=== PATIENT | male | born 1940 | race Caucasian/White ===

== ENCOUNTER 2017-11-26 20:36 | Inpatient (IN) | payer OTHER, MEDICAID ==
[~2017-11-26] VITALS: Ht 167.6 cm; Wt 56.7 kg
[2017-11-26 20:40] VITALS: BP_SYST 156
[2017-11-26] MEDS ORDERED: MORPHINE 4 MG/ML INJ. SYRINGE IVP ONE (21:00)
[2017-11-26] MEDS ORDERED: ONDANSETRON HCL 4 MG/2 ML VIAL IVP ONE (21:00)
[2017-11-26 21:47] LABS: BASOPHILS # (AUTO) 0.1 K/uL (0.0-0.2); BASOPHILS % (AUTO) 0.9 % (0.0-2.0); EOSINOPHILS # (AUTO) 0.1 K/uL (0.0-0.4); EOSINOPHILS % (AUTO) 1.6 % (0.0-4.0); HEMATOCRIT 37.2 % (36-48); HEMOGLOBIN 13.2 g/dL (12.0-16.0); LYMPHOCYTES # (AUTO) 1.9 K/uL (1.0-5.5); LYMPHOCYTES % (AUTO) 25.6 % (20.5-51.5); MEAN CORPUSCULAR HEMOGLOBIN 33 pg (27-31); MEAN CORPUSCULAR HGB CONC 35 % (32-36); MEAN CORPUSCULAR VOLUME 93 fL (79.0-98.0); MONOCYTES # (AUTO) 0.6 K/uL (0.0-1.0); MONOCYTES % (AUTO) 7.9 % (1.7-9.3); NEUTROPHILS # (AUTO) 4.8 K/uL (1.8-7.7); PLATELET COUNT (AUTO) 286 K/uL (130-430); RED BLOOD CELL COUNT(AUTO) 4.02 MIL/uL (4.2-6.2); WHITE BLOOD COUNT (AUTO) 7.5 K/uL (4.8-10.8)
[2017-11-26] MEDS ORDERED: NAPR-690 PO (22:15)
[2017-11-26] MEDS ORDERED: HYDR-4272 PO (22:16)
[2017-11-26] MEDS ORDERED: CHLO473M5 MM (22:17)
[2017-11-26] MEDS ORDERED: TAMS-11 PO (22:19)
[2017-11-26] MEDS ORDERED: TRAM50TA2 PO (22:20)
[2017-11-26] MEDS ORDERED: ACET325C4 PO (22:22)
[2017-11-26] MEDS ORDERED: DIPHENHYDRAMINE INJ 50 MG/ML VIAL IVP ONE (22:30)
[2017-11-26] MEDS ORDERED: METOCLOPRAMIDE HCL 10 MG/2 ML VIAL IVP ONE (22:30)
[2017-11-26] MEDS ORDERED: PANTOPRAZOLE SODIUM 40 MG/VIAL (PROTONIX) IVP ONE (22:30)
[2017-11-26] MEDS ORDERED: MORPHINE SULFATE 10 MG/ML VIAL IVP ONE (22:30)
[2017-11-26 22:32] LABS: ANION GAP 8 (5-15); CALCIUM 9.1 mg/dL (8.4-11.0); CHLORIDE 102 mmol/L (98-107); CREATININE 1.06 mg/dL (0.55-1.30); GLUCOSE 103 mg/dL (70-99); POTASSIUM 4.3 mmol/L (3.5-5.1); SODIUM SERUM 136 mmol/L (136-145); UREA NITROGEN, BLOOD 24 mg/dL (8-21)
[2017-11-26 22:38] LABS: ALANINE AMINOTRANSFERASE 32 U/L (12-78); ASPARTATE AMINOTRANSFERASE 28 U/L (10-37); LIPASE 251 U/L (73-393); TOTAL BILIRUBIN 0.2 mg/dL (0.0-1.0)
[2017-11-27 01:01] LABS: BILIRUBIN,URINE NEGATIVE (NEGATIVE); BLOOD, URINE NEGATIVE (NEGATIVE); CLARITY/URINE CLEAR (CLEAR); COLOR,URINE YELLOW (YELLOW); GLUCOSE,URINE NEGATIVE (NEGATIVE); KETONES,URINE NEGATIVE (NEGATIVE); LEUKOCYTE ESTERASE ,URINE NEGATIVE (NEGATIVE); NITRITE, URINE NEGATIVE (NEGATIVE); PH,URINE 7.5 (5.0-8.0); PROTEIN URINE NEGATIVE (NEGATIVE); UROBILINOGEN,URINE 0.2 (0.2-1.0)
[2017-11-27] MEDS ORDERED: MORPHINE 4 MG/ML INJ. SYRINGE IVP PRN (02:45)
[2017-11-27] MEDS ORDERED: ONDANSETRON HCL 4 MG/2 ML VIAL IVP PRN (02:45)
[2017-11-27 03:11] VITALS: BP_SYST 126
[2017-11-27] MEDS ORDERED: BISACODYL 10 MG/SUPPOSITORY RC ONE (03:30)
[2017-11-27] MEDS: D5/0.45 NS 1,000 ML IV SCH ×2 (04:01→16:36)
[2017-11-27 08:00] VITALS: BP_SYST 134
[2017-11-27] MEDS: PANTOPRAZOLE SODIUM 40 MG/VIAL (PROTONIX) IVP SCH (09:02)
[2017-11-27] MEDS ORDERED: GASTROGRAFIN 120 ML ONE (09:49)
[2017-11-27 11:26] VITALS: BP_SYST 133
[2017-11-27] MEDS ORDERED: traMADol HCL HCL 50 MG TABLET (ULTRAM) PO PRN (12:30)
[2017-11-27] MEDS ORDERED: TAMSULOSIN HCL 0.4 MG CAP PO ONE (12:30)
[2017-11-27] MEDS ORDERED: PHENYTOIN 100 MG CAPSULE PO ONE (12:45)
[2017-11-27] MEDS ORDERED: POLYETHYLENE GLYCOL 3350, 17 GM/ POWD.PACK PO ONE (12:45)
[2017-11-27 15:42] VITALS: BP_SYST 137
[2017-11-27] MEDS ORDERED: DEXTROSE 50%-WATER 50 ML DISP.SYRIN IVP PRN ×2 (17:00)
[2017-11-27] MEDS ORDERED: INSULIN REGULAR, HUMAN 100 UNITS/ML, 10 ML VIAL SUBCUT SCH (17:00)
[2017-11-27] MEDS ORDERED: GLUCOSE 15 GM GEL (in 37.5 GM TUBE) PO PRN ×2 (17:00)
[2017-11-27] MEDS: metFORMIN HCL 500 MG TABLET PO SCH (17:04)
[2017-11-27 20:09] VITALS: BP_SYST 122
[2017-11-27] MEDS: DONEPEZIL HCL 5 MG TABLET (ARICEPT) PO SCH (20:48)
[2017-11-27] MEDS: PHENYTOIN 100 MG CAPSULE PO SCH (20:49)
[2017-11-27] MEDS: DOCUSATE SODIUM 100 MG CAPSULE PO SCH (20:51)
[2017-11-28] VITALS: BP_SYST 154
[2017-11-28] MEDS: D5/0.45 NS 1,000 ML IV SCH (06:03)
[2017-11-28 06:50] LABS: BASOPHILS # (AUTO) 0.1 K/uL (0.0-0.2); BASOPHILS % (AUTO) 0.5 % (0.0-2.0); EOSINOPHILS # (AUTO) 0.2 K/uL (0.0-0.4); EOSINOPHILS % (AUTO) 1.9 % (0.0-4.0); HEMATOCRIT 37.3 % (36-54); HEMOGLOBIN 12.3 g/dL (14.0-18.0); LYMPHOCYTES # (AUTO) 1.5 K/uL (1.0-5.5); LYMPHOCYTES % (AUTO) 14.2 % (20.5-51.5); MEAN CORPUSCULAR HEMOGLOBIN 31 pg (27-31); MEAN CORPUSCULAR HGB CONC 33 % (32-36); MEAN CORPUSCULAR VOLUME 95 fL (79.0-98.0); MONOCYTES # (AUTO) 0.6 K/uL (0.0-1.0); NEUTROPHILS % (AUTO) 77.4 % (40.0-70.0); PLATELET COUNT (AUTO) 281 K/uL (130-430); RED BLOOD CELL COUNT(AUTO) 3.93 MIL/uL (4.2-6.2); RED CELL DISTRIBUTION WIDTH 12.6 % (9.0-15.0); WHITE BLOOD COUNT (AUTO) 10.4 K/uL (4.8-10.8)
[2017-11-28 06:52] LABS: ALANINE AMINOTRANSFERASE 31 U/L (12-78); ALBUMIN 3.6 g/dL (3.4-4.8); AMYLASE 147 U/L (0-100); ANION GAP 6 (5-15); ASPARTATE AMINOTRANSFERASE 23 U/L (10-37); CALCIUM 8.7 mg/dL (8.4-11.0); CHLORIDE 106 mmol/L (98-107); CREATININE 0.83 mg/dL (0.55-1.30); GLUCOSE 97 mg/dL (70-99); LIPASE 192 U/L (73-393); POTASSIUM 3.8 mmol/L (3.5-5.1); SODIUM SERUM 140 mmol/L (136-145); TOTAL BILIRUBIN 0.2 mg/dL (0.0-1.0); UREA NITROGEN, BLOOD 12 mg/dL (8-21)
[2017-11-28 08:00] VITALS: BP_SYST 126
[2017-11-28] MEDS: metFORMIN HCL 500 MG TABLET PO SCH ×2 (08:00→17:16)
[2017-11-28] MEDS: TAMSULOSIN HCL 0.4 MG CAP PO SCH (08:58)
[2017-11-28] MEDS: MULTIVITS,CA,MINERALS/IRON/FA 1 TABLET PO SCH (08:58)
[2017-11-28] MEDS: PHENYTOIN 100 MG CAPSULE PO SCH ×2 (08:59→21:31)
[2017-11-28] MEDS ORDERED: POLYETHYLENE GLYCOL 3350, 17 GM/ POWD.PACK PO SCH (09:00)
[2017-11-28] MEDS: DOCUSATE SODIUM 100 MG CAPSULE PO SCH ×2 (09:00→21:00)
[2017-11-28] MEDS: PANTOPRAZOLE SODIUM 40 MG/VIAL (PROTONIX) IVP SCH (09:01)
[2017-11-28] MEDS ORDERED: MAG-AL HYDROX/SIMETH 30 ML UDC PO PRN (10:45)
[2017-11-28 12:30] VITALS: BP_SYST 133
[2017-11-28 16:30] VITALS: BP_SYST 120
[2017-11-28 20:00] VITALS: BP_SYST 139
[2017-11-28] MEDS: DONEPEZIL HCL 5 MG TABLET (ARICEPT) PO SCH (21:31)
[2017-11-29 00:26] VITALS: BP_SYST 144
[2017-11-29] MEDS: INSULIN REGULAR, HUMAN 100 UNITS/ML, 10 ML VIAL (novoLIN R) SUBCUT PRN (06:38)
[2017-11-29 06:48] LABS: BASOPHILS % (AUTO) 0.7 % (0.0-2.0); EOSINOPHILS # (AUTO) 0.1 K/uL (0.0-0.4); EOSINOPHILS % (AUTO) 2.3 % (0.0-4.0); HEMATOCRIT 36.8 % (36-54); HEMOGLOBIN 12.7 g/dL (14.0-18.0); LYMPHOCYTES # (AUTO) 1.6 K/uL (1.0-5.5); LYMPHOCYTES % (AUTO) 27.4 % (20.5-51.5); MEAN CORPUSCULAR HEMOGLOBIN 33 pg (27-31); MEAN CORPUSCULAR HGB CONC 35 % (32-36); MEAN CORPUSCULAR VOLUME 95 fL (79.0-98.0); MONOCYTES # (AUTO) 0.5 K/uL (0.0-1.0); MONOCYTES % (AUTO) 8.3 % (1.7-9.3); NEUTROPHILS # (AUTO) 3.5 K/uL (1.8-7.7); NEUTROPHILS % (AUTO) 61.3 % (40.0-70.0); PLATELET COUNT (AUTO) 278 K/uL (130-430); RED BLOOD CELL COUNT(AUTO) 3.88 MIL/uL (4.2-6.2); RED CELL DISTRIBUTION WIDTH 12.6 % (9.0-15.0); WHITE BLOOD COUNT (AUTO) 5.7 K/uL (4.8-10.8)
[2017-11-29 07:12] LABS: ALANINE AMINOTRANSFERASE 104 U/L (12-78); ALBUMIN 3.7 g/dL (3.4-4.8); ANION GAP 7 (5-15); ASPARTATE AMINOTRANSFERASE 75 U/L (10-37); CALCIUM 8.8 mg/dL (8.4-11.0); CHLORIDE 104 mmol/L (98-107); CREATININE 0.87 mg/dL (0.55-1.30); GLUCOSE 90 mg/dL (70-99); LIPASE 181 U/L (73-393); POTASSIUM 3.8 mmol/L (3.5-5.1); SODIUM SERUM 138 mmol/L (136-145); TOTAL BILIRUBIN 0.3 mg/dL (0.0-1.0); UREA NITROGEN, BLOOD 10 mg/dL (8-21)
[2017-11-29 08:00] VITALS: BP_SYST 128
[2017-11-29] MEDS: metFORMIN HCL 500 MG TABLET PO SCH ×2 (08:00→17:54)
[2017-11-29] MEDS: PANTOPRAZOLE SODIUM 40 MG/VIAL (PROTONIX) IVP SCH ×2 (09:00→10:17)
[2017-11-29] MEDS: DOCUSATE SODIUM 100 MG CAPSULE PO SCH ×3 (09:00→20:57)
[2017-11-29] MEDS: TAMSULOSIN HCL 0.4 MG CAP PO SCH (10:17)
[2017-11-29] MEDS: MULTIVITS,CA,MINERALS/IRON/FA 1 TABLET PO SCH (10:18)
[2017-11-29] MEDS: PHENYTOIN 100 MG CAPSULE PO SCH ×2 (10:18→20:56)
[2017-11-29 11:18] VITALS: BP_SYST 111
[2017-11-29 15:14] VITALS: BP_SYST 108
[2017-11-29] MEDS ORDERED: GOLYTELY / COLYTE SOLUTION 4 LITERS PO SCH (18:00)
[2017-11-29] MEDS ORDERED: PHENYTOIN 100 MG CAPSULE ONE (20:44)
[2017-11-29 20:54] VITALS: BP_SYST 111
[2017-11-29] MEDS: DONEPEZIL HCL 5 MG TABLET (ARICEPT) PO SCH (20:55)
[2017-11-29] MEDS ORDERED: BISACODYL 5 MG TABLET.DR (DULCOLAX) PO ONE (21:00)
[2017-11-29] MEDS ORDERED: BISACODYL 5 MG TABLET.DR (DULCOLAX) ONE (22:19)
[2017-11-30 00:35] VITALS: BP_SYST 123
[2017-11-30] MEDS: INSULIN REGULAR, HUMAN 100 UNITS/ML, 10 ML VIAL (novoLIN R) SUBCUT PRN (06:18)
[2017-11-30 06:42] LABS: BASOPHILS # (AUTO) 0.1 K/uL (0.0-0.2); BASOPHILS % (AUTO) 0.9 % (0.0-2.0); EOSINOPHILS # (AUTO) 0.2 K/uL (0.0-0.4); HEMATOCRIT 36.3 % (36-54); HEMOGLOBIN 12.6 g/dL (14.0-18.0); LYMPHOCYTES # (AUTO) 1.4 K/uL (1.0-5.5); LYMPHOCYTES % (AUTO) 24.8 % (20.5-51.5); MEAN CORPUSCULAR HEMOGLOBIN 33 pg (27-31); MEAN CORPUSCULAR HGB CONC 35 % (32-36); MEAN CORPUSCULAR VOLUME 94 fL (79.0-98.0); MONOCYTES # (AUTO) 0.6 K/uL (0.0-1.0); MONOCYTES % (AUTO) 9.7 % (1.7-9.3); NEUTROPHILS # (AUTO) 3.5 K/uL (1.8-7.7); NEUTROPHILS % (AUTO) 61.6 % (40.0-70.0); PLATELET COUNT (AUTO) 283 K/uL (130-430); RED BLOOD CELL COUNT(AUTO) 3.85 MIL/uL (4.2-6.2); RED CELL DISTRIBUTION WIDTH 12.7 % (9.0-15.0); WHITE BLOOD COUNT (AUTO) 5.8 K/uL (4.8-10.8)
[2017-11-30 06:45] LABS: PROTHROMBIN TIME 10.6 SECS (9.5-12.5)
[2017-11-30 06:54] LABS: ANION GAP 7 (5-15); CALCIUM 9.2 mg/dL (8.4-11.0); CHLORIDE 104 mmol/L (98-107); CREATININE 0.98 mg/dL (0.55-1.30); GLUCOSE 89 mg/dL (70-99); POTASSIUM 3.9 mmol/L (3.5-5.1); SODIUM SERUM 139 mmol/L (136-145); UREA NITROGEN, BLOOD 12 mg/dL (8-21)
[2017-11-30] MEDS: TAMSULOSIN HCL 0.4 MG CAP PO SCH (08:45)
[2017-11-30] MEDS: MULTIVITS,CA,MINERALS/IRON/FA 1 TABLET PO SCH (08:45)
[2017-11-30] MEDS: metFORMIN HCL 500 MG TABLET PO SCH (08:45)
[2017-11-30] MEDS: PHENYTOIN 100 MG CAPSULE PO SCH (08:45)
[2017-11-30] MEDS: DOCUSATE SODIUM 100 MG CAPSULE PO SCH (08:51)
[2017-11-30] MEDS: PANTOPRAZOLE SODIUM 40 MG/VIAL (PROTONIX) IVP SCH (08:51)
[2017-11-30 08:57] VITALS: BP_SYST 125
[2017-11-30 12:00] VITALS: BP_SYST 128
[2017-11-30 15:34] VITALS: BP_SYST 128
[2017-11-30 16:23] VITALS: BP_SYST 129
== END 2017-11-30 17:50 | DRG 384 ==
LOC: SED 20:36 → EDSEX 20:36 → SMU 11-27 02:39
PROVIDERS: ADMIT Internal Medicine; ATTEND Family Medicine
DX: K27.9 Peptic ulcer, site unspecified, unspecified as acute or chronic, without hemorrhage or perforation (principal); K56.690 Other partial intestinal obstruction; K29.70 Gastritis, unspecified, without bleeding; K52.9 Noninfective gastroenteritis and colitis, unspecified; K59.00 Constipation, unspecified; N40.0 Benign prostatic hyperplasia without lower urinary tract symptoms; F03.90 Unspecified dementia, unspecified severity, without behavioral disturbance, psychotic disturbance, mood disturbance, and anxiety; E11.9 Type 2 diabetes mellitus without complications; G40.909 Epilepsy, unspecified, not intractable, without status epilepticus; K21.9 Gastro-esophageal reflux disease without esophagitis; M19.90 Unspecified osteoarthritis, unspecified site; Z90.49 Acquired absence of other specified parts of digestive tract; Z87.891 Personal history of nicotine dependence; Z79.899 Other long term (current) drug therapy
CPT/HCPCS: 36415; 74250-TC; 80048; 80053; 81003; 82150-TC; 82962; 83690-TC; 85025; 85610-TC; 85730-TC; 87081; 93005; 96374; 96375; 96376; 99285; C9113; J1200; J1815; J2270; J2405; J2765; Q9963

== ENCOUNTER 2019-01-02 17:50 | Emergency (ER) | payer OTHER, MEDICAID ==
[~2019-01-02] VITALS: Ht 172.7 cm; Wt 56.7 kg
[~2019-01-02 17:50] MED LIST: ACET325C6 PO; CHLO473M5 MM; HYDR-4272 PO; NAPR-690 PO; TAMS-11 PO; TRAM50TA2 PO
[2019-01-02 17:55] VITALS: BP_SYST 121
[2019-01-02 19:14] LABS: ANION GAP 8 (5-15); BASOPHILS % (AUTO) 0.4 % (0.0-2.0); CHLORIDE 102 mmol/L (98-107); CREATININE 1.18 mg/dL (0.55-1.30); EOSINOPHILS % (AUTO) 0.6 % (0.0-4.0); GLUCOSE 96 mg/dL (70-99); HEMATOCRIT 33.9 % (36-54); HEMOGLOBIN 11.6 g/dL (14.0-18.0); LYMPHOCYTES # (AUTO) 1.6 K/uL (1.0-5.5); LYMPHOCYTES % (AUTO) 19.1 % (20.5-51.5); MEAN CORPUSCULAR HEMOGLOBIN 33 pg (27-31); MEAN CORPUSCULAR HGB CONC 34 % (32-36); MEAN CORPUSCULAR VOLUME 98 fL (79.0-98.0); MONOCYTES # (AUTO) 0.7 K/uL (0.0-1.0); MONOCYTES % (AUTO) 8.2 % (1.7-9.3); NEUTROPHILS # (AUTO) 5.9 K/uL (1.8-7.7); NEUTROPHILS % (AUTO) 71.7 % (40.0-70.0); PLATELET COUNT (AUTO) 249 K/uL (130-430); POTASSIUM 4.8 mmol/L (3.5-5.1); RED BLOOD CELL COUNT(AUTO) 3.47 MIL/uL (4.2-6.2); RED CELL DISTRIBUTION WIDTH 15.5 % (9.0-15.0); SODIUM SERUM 135 mmol/L (136-145); UREA NITROGEN, BLOOD 21 mg/dL (8-21); WHITE BLOOD COUNT (AUTO) 8.2 K/uL (4.8-10.8)
[2019-01-02 19:19] LABS: ACETAMINOPHEN 16 ug/mL (1-30); ALANINE AMINOTRANSFERASE 9 U/L (12-78); ASPARTATE AMINOTRANSFERASE 12 U/L (10-37); TOTAL BILIRUBIN 0.3 mg/dL (0.0-1.0)
[2019-01-02 19:21] LABS: ALCOHOL, BLOOD < 3 mg/dL (<10)
[2019-01-02 20:08] LABS: BARBITURATE, URINE NEGATIVE (NEG <=200); BENZODIAZEPINE, URINE NEGATIVE (NEG <=150); CANNABINOID, URINE NEGATIVE (NEG <=50); COCAINE, URINE NEGATIVE (NEG <=150); METHAMPHETAMINES SCREEN,URINE NEGATIVE (NEG <=500); OPIATE, URINE POSITIVE (NEG <=100); PHENCYCLIDINE SCREEN,URINE NEGATIVE (NEG <=25); UR TRICYCLIC ANTIDEPRESSANTS NEGATIVE (NEG <=300); URINE AMPHETAMINE NEGATIVE (NEG <=500); URINE METHADONE NEGATIVE (NEG <=200); URINE OXYCODONE SCREEN NEGATIVE (NEG <=100); URINE PROPOXYPHENE SCREEN NEGATIVE (NEG <=300)
[2019-01-02 21:07] VITALS: BP_SYST 128
[2019-01-03 18:19] LABS: CHOLESTEROL 156 mg/dL (<200); HDL CHOLESTEROL 72 mg/dL (>45); LDL CHOLESTEROL 63 mg/dL (<100); TRIGLYCERIDES 66 mg/dL (30-150)
== END 2019-01-02 21:07 ==
LOC: SED 17:50
DX: S01.112A Laceration without foreign body of left eyelid and periocular area, initial encounter (principal); E11.9 Type 2 diabetes mellitus without complications; F03.90 Unspecified dementia, unspecified severity, without behavioral disturbance, psychotic disturbance, mood disturbance, and anxiety; Z79.899 Other long term (current) drug therapy; Y04.0XXA Assault by unarmed brawl or fight, initial encounter; Y93.89 Activity, other specified; Y92.89 Other specified places as the place of occurrence of the external cause; Y99.8 Other external cause status
CPT/HCPCS: 12011; 36415; 70450; 80053; 80061; 80307; 83036; 85025; 99285; G0480; G0481; G0482

== ENCOUNTER 2019-01-05 11:41 | Outpatient (CLI) | payer OTHER | END 2019-01-06 08:40 | disposition home or self-care (01) | LOC: SLB 11:41 | PROVIDERS: ATTEND Psychiatry & Neurology Psychiatry | DX: Z00.00 Encounter for general adult medical examination without abnormal findings (principal) | CPT/HCPCS: 87081 ==

== ENCOUNTER 2019-01-12 10:01 | Outpatient (CLI) | payer OTHER | END 2019-01-12 21:04 | disposition home or self-care (01) | LOC: SLB 10:01 | PROVIDERS: ATTEND Psychiatry & Neurology Psychiatry | DX: Z00.00 Encounter for general adult medical examination without abnormal findings (principal) | CPT/HCPCS: 87081 ==

== ENCOUNTER 2020-10-24 22:18 | Emergency (ER) | payer OTHER, MEDICAID ==
[~2020-10-24] VITALS: Ht 172.7 cm; Wt 56.7 kg
[2020-10-24 22:18] VITALS: BP_SYST 157
[2020-10-24] MEDS ORDERED: ASCO500T20 PO (22:40)
[2020-10-24] MEDS ORDERED: [UNRECOGNIZED DRUG - CODE] PO (22:41)
[2020-10-24] MEDS ORDERED: MEMA10TA PO (22:42)
[2020-10-24] MEDS ORDERED: SER25 PO (22:42)
[2020-10-24] MEDS ORDERED: MULT-1100 PO (22:43)
[2020-10-24] MEDS ORDERED: LEVE500T53 PO (22:43)
[2020-10-24] MEDS ORDERED: DONE10TA44 PO (22:44)
[2020-10-24] MEDS ORDERED: MELA3CAP2 PO (22:44)
[2020-10-24] MEDS ORDERED: GLU500 PO (22:45)
[2020-10-24] MEDS ORDERED: DOCU-144 PO (22:46)
[2020-10-24] MEDS ORDERED: NACL 0.9% 1,000 ML IV ONE (23:15)
[2020-10-24 23:42] LABS: BASOPHILS # (AUTO) 0.1 K/uL (0.0-0.2); BASOPHILS % (AUTO) 0.7 % (0.0-2.0); EOSINOPHILS % (AUTO) 0.3 % (0.0-4.0); HEMATOCRIT 37.1 % (36-54); HEMOGLOBIN 12.8 g/dL (14.0-18.0); LYMPHOCYTES # (AUTO) 1.3 K/uL (1.0-5.5); LYMPHOCYTES % (AUTO) 14.3 % (20.5-51.5); MEAN CORPUSCULAR HEMOGLOBIN 32 pg (27-31); MEAN CORPUSCULAR HGB CONC 35 % (32-36); MEAN CORPUSCULAR VOLUME 93 fL (79.0-98.0); MONOCYTES # (AUTO) 0.6 K/uL (0.0-1.0); NEUTROPHILS % (AUTO) 77.7 % (40.0-70.0); PLATELET COUNT (AUTO) 246 K/uL (130-430); RED BLOOD CELL COUNT(AUTO) 3.98 MIL/uL (4.2-6.2); RED CELL DISTRIBUTION WIDTH 13.3 % (9.0-15.0)
[2020-10-24 23:51] LABS: ANION GAP 10 (5-15); CALCIUM 9.3 mg/dL (8.4-11.0); CHLORIDE 104 mmol/L (98-107); GLUCOSE 102 mg/dL (70-99); POTASSIUM 3.7 mmol/L (3.5-5.1); SODIUM SERUM 142 mmol/L (136-145); UREA NITROGEN, BLOOD 22 mg/dL (8-21)
[2020-10-24 23:55] LABS: PROTHROMBIN TIME 10.4 SECS (9.5-12.5)
[2020-10-24 23:57] LABS: ALANINE AMINOTRANSFERASE 13 U/L (12-78); ALBUMIN 3.9 g/dL (3.4-4.8); ASPARTATE AMINOTRANSFERASE 14 U/L (10-37); LIPASE 137 U/L (73-393); TOTAL BILIRUBIN 0.2 mg/dL (0.0-1.0)
[2020-10-25 01:53] LABS: BILIRUBIN,URINE NEGATIVE (NEGATIVE); BLOOD, URINE NEGATIVE (NEGATIVE); CLARITY/URINE CLEAR (CLEAR); COLOR,URINE YELLOW (YELLOW); GLUCOSE,URINE NEGATIVE (NEGATIVE); KETONES,URINE NEGATIVE (NEGATIVE); LEUKOCYTE ESTERASE ,URINE NEGATIVE (NEGATIVE); NITRITE, URINE NEGATIVE (NEGATIVE); PH,URINE 8.5 (5.0-8.0); PROTEIN URINE NEGATIVE (NEGATIVE); UROBILINOGEN,URINE 0.2 (0.2-1.0)
[2020-10-25 03:15] VITALS: BP_SYST 140
== END 2020-10-25 03:15 | disposition home or self-care (01) ==
LOC: SED 22:18
DX: R10.11 Right upper quadrant pain (principal); R11.2 Nausea with vomiting, unspecified; E11.9 Type 2 diabetes mellitus without complications; Z79.899 Other long term (current) drug therapy
CPT/HCPCS: 36415; 71045; 74176; 76376; 76700; 80053; 81003; 83605; 83690; 85025; 85610; 85730; 87040; 93005; 96360; 99285; J7030

== ENCOUNTER 2021-12-17 23:39 | Inpatient (IN) | payer OTHER, MEDICAID ==
[~2021-12-17] VITALS: Ht 170.2 cm; Wt 54.9 kg
[~2021-12-17 23:39] MED LIST changes: +ASCO500T20 PO; -CHLO473M5 MM; +DOCU-144 PO; +DONE10TA44 PO; +GLU500 PO; -HYDR-4272 PO; +LEVE500T21 PO; +MELA3CAP2 PO; +MEMA10TA PO; +MULT-1193 PO; -NAPR-690 PO; +SER25 PO; -TRAM50TA2 PO; +[UNRECOGNIZED DRUG - CODE] PO
[2021-12-17 23:47] VITALS: BP_SYST 113
--- NOTE | 2021-12-18 | NUR ---
PT SENT BIB BLS TRANSPORT FOR EVALUATION OF ABNORMAL LAB (HGB 6.2) ON RECENT BLOOD DRAWN. NO BLEEDING NOTED, DENIES N/V/D. PENDING MD BLAKE
--- NOTE | 2021-12-18 00:10 | NUR ---
Patient to ER bed 5 to gown for evaluation. Side rails up.
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
[2021-12-18] MEDS ORDERED: traMADol HCL HCL 50 MG TABLET (ULTRAM) PO ONE ×2 (01:15→06:30)
[2021-12-18 01:27] LABS: ANION GAP 9 (5-15); CALCIUM 9.2 mg/dL (8.4-11.0); CHLORIDE 103 mmol/L (98-107); CREATININE 1.36 mg/dL (0.55-1.30); GLUCOSE 87 mg/dL (70-99); POTASSIUM 3.1 mmol/L (3.5-5.1); SODIUM SERUM 136 mmol/L (136-145); UREA NITROGEN, BLOOD 17 mg/dL (8-21)
[2021-12-18 01:36] LABS: ALANINE AMINOTRANSFERASE 30 U/L (12-78); ALBUMIN 1.4 g/dL (3.4-4.8); ASPARTATE AMINOTRANSFERASE 36 U/L (10-37); TOTAL BILIRUBIN 0.4 mg/dL (0.0-1.0)
[2021-12-18 02:00] LABS: BASOPHILS % (AUTO) 0.8 % (0.0-2.0); EOSINOPHILS # (AUTO) 0.1 K/uL (0.0-0.4); EOSINOPHILS % (AUTO) 3.4 % (0.0-4.0); LYMPHOCYTES # (AUTO) 0.6 K/uL (1.0-5.5); LYMPHOCYTES % (AUTO) 14.6 % (20.5-51.5); MEAN CORPUSCULAR VOLUME 79 fL (79.0-98.0); MONOCYTES # (AUTO) 0.5 K/uL (0.0-1.0); NEUTROPHILS # (AUTO) 2.7 K/uL (1.8-7.7); NEUTROPHILS % (AUTO) 68.2 % (40.0-70.0); PLATELET COUNT (AUTO) 445 K/uL (130-430); RED BLOOD CELL COUNT(AUTO) 2.53 MIL/uL (4.2-6.2); WHITE BLOOD COUNT (AUTO) 3.9 K/uL (4.8-10.8)
[2021-12-18] MEDS ORDERED: POTASSIUM CHLORIDE 20 MEQ TAB.PRT.SR PO ONE (02:00)
[2021-12-18] MEDS ORDERED: LORazepam 1 MG TABLET PO ONE (02:00)
[2021-12-18] MEDS ORDERED: POTASSIUM CHLORIDE 20 MEQ TAB.PRT.SR ONE (02:55)
--- NOTE | 2021-12-18 03:38 | NUR ---
Pt signed consent form for blood transfusion. discussed transfusion with patient.
--- NOTE | 2021-12-18 04:23 | NUR ---
Blood transfusion started. Pt VSS.
--- NOTE | 2021-12-18 04:38 | NUR ---
After 15 minutes, pt tolerating blood transfusion well. No reaction to transfusion, even and unlabored resp O2 sat at 100% on RA. VSS. Pt now resting in bed.
--- NOTE | 2021-12-18 07:23 | NUR ---
Report given to Sariah MAYERS to assume care. All questions and concerns addressed at this time.
--- NOTE | 2021-12-18 07:30 | NUR ---
RECEIVED PT FROM TALIB SARAH. PT IS AAOX2 TO PERSON AND PLACE. PT IS RECEIVING ONE UNIT PRBC. PT HAS BEEN PULLING ON IV LINE AND OCCLUDING LINE ON PRIOR SHIFT. UPON ASSESSMENT PT IV CATH TO [facility] IS INFILTRATED. ATTEMPTING NEW LINE AT THIS TIME. PT NONCOMPLIENT WITH IV INSERTION, WILL KEEP ATTEMPTING TOLERATED. RESP E/U. ON R/A. PT INCONTINENT AND NOTED WITH LOOSE STOOLS ON PRIOR SHIFT. CALL LIGHT WITHIN REACH.
--- NOTE | 2021-12-18 08:25 | NUR ---
PT RECEIVING CXR.
--- NOTE | 2021-12-18 08:27 | NUR ---
Admit bed requested Patient will be admitted to care of . Admitted to MedSurg unit. Diagnosis Severe Anemia Inpatient (Yes or No) Yes Observation (Yes or No) No Orientation concerns or request close to nursing station (Yes or No) Yes Covid Status Negative On vent or bipap No Isolation requirements No Needs a sitter No From Home (Yes or if No enter name of facility) [facility] Requires Dialysis (Yes or No) No Med Rec Completed (Yes of No) In Process
--- NOTE | 2021-12-18 08:30 | NUR ---
MULTIPLE ATTEMPTS WITH NEW IV INSERTION, BUT NO ACCESS AT THIS TIME. PT NONCOMPLIANT WITH PROCEDURE. BLOOD TRANSFUSION WAS NOT COMPLETED. PT RECEIVED 200ML OF UNIT, 200 ML WILL BE WASTED.
[2021-12-18] MEDS ORDERED: DEXTROSE 50% JECT 50 ML DISP.SYRIN IVP PRN (08:45)
[2021-12-18] MEDS ORDERED: D5W 1,000 ML IV PRN (08:45)
[2021-12-18] MEDS ORDERED: GLUCOSE (DEXTROSE) ORAL GEL -Adults PO PRN (08:45)
--- NOTE | 2021-12-18 08:45 | NUR ---
RECEIVED ADMIT ORDERS FROM DR. YOUNG, PT RECEIVED ORDERS FOR 2 UNITS PRBCS. BLOOD FORMS TAKEN TO BLOOD BANK.
[2021-12-18 08:46] LABS: HEMOGLOBIN 6.5 g/dL (14.0-18.0); MEAN CORPUSCULAR HEMOGLOBIN 26 pg (27-31)
[2021-12-18 08:47] LABS: MEAN CORPUSCULAR HGB CONC 32 % (32-36)
--- NOTE | 2021-12-18 08:50 | NUR ---
IV ACCESS RE-ESTABLISHED 20G TO RAC.
[2021-12-18] MEDS ORDERED: DIPH25CA83 PO (08:59)
[2021-12-18] MEDS ORDERED: ACET-73 PO (08:59)
[2021-12-18] MEDS ORDERED: FER300L PO (08:59)
[2021-12-18] MEDS ORDERED: PRO40 PO (08:59)
[2021-12-18] MEDS ORDERED: CALC-823 PO (08:59)
[2021-12-18] MEDS ORDERED: SSREG SUBCUT (08:59)
[2021-12-18] MEDS ORDERED: BISA5TAB10 PO (08:59)
--- NOTE | 2021-12-18 08:59 | NUR ---
Medication reconciliation completed with information provided by DERIK KELLER. Any prior medication reconciliation on file was reviewed and corrected.
[2021-12-18] MEDS ORDERED: OLANZapine IntraMuscular 10 MG VIAL (FOR I.M. INJECTION ONLY) IM ONE ×2 (09:15→10:30)
--- NOTE | 2021-12-18 09:58 | NUR ---
ZYPREXA 5MG IM GIVEN FOR AGITATION. PT HAS ATTEMPTING TO PULL OUT VILLANUEVA CATHETHER AND PULLING AT IV LINE. PT REPOSITIONED FOR COMFORT.
--- NOTE | 2021-12-18 14:51 | NUR ---
Patient will be admitted to care of deidre wayne. Admitted to med surg unit. Will go to room 104. Belongings list completed. Complete and up to date summary report printed. SBAR report to be given at bedside with opportunity for questions.
[2021-12-18 15:09] VITALS: BP_SYST 139
[2021-12-18 15:15] VITALS: BP_SYST 139
--- NOTE | 2021-12-18 16:38 | NUR ---
CONSULTATION PAGED REASON FOR CONSULTATION:ANEMIA WAS CONSULT CALLED?Y PERSON WHO WAS NOTIFIED:COLIN CONSULTING PHYSICIAN:SRINI VILLANUEVA CABINETMAKER SUPERVISOR SPECIALTY:HEMATOLOGY/SEBD TEACHER PHONE NUMBER:[phone] REQUESTING PHYSICIAN:KEREN SPRINGER
[2021-12-18] MEDS ORDERED: INSULIN REGULAR, HUMAN 100 UNITS/ML, 10 ML VIAL (humuLIN R) SUBCUT PRN (16:45)
[2021-12-18] MEDS ORDERED: CALCIUM CARBONATE 500 MG/ TAB.CHEW PO PRN (16:45)
[2021-12-18] MEDS ORDERED: DIPHENHYDRAMINE HCL 25 MG CAPSULE PO PRN (16:45)
[2021-12-18] MEDS ORDERED: POTASSIUM CHLORIDE 20 MEQ/PKT PACKET PO ONE (17:15)
[2021-12-18] MEDS: ASCORBIC ACID 500 MG TABLET PO SCH (17:19)
[2021-12-18] MEDS ORDERED: MELATONIN 3 MG TABLET PO PRN (17:30)
[2021-12-18] MEDS ORDERED: BISACODYL 5 MG TABLET.DR (DULCOLAX) PO PRN (18:00)
--- NOTE | 2021-12-18 18:08 | NUR ---
2ND UNIT OF PRBC TRANSFUSION STARTED. VITAL SIGNS STABLE, NO DISTRESS NOTED. NEWLY PLACED IV SITE ON RIGHT FOREARM, 20G, PATENT WITH GOOD BLOOD RETURN. PT EATING DINNER AT THIS TIME. PER BLOOD BANKISA, PLEASE CALL FOR THE 3RD UNIT BEFORE PICKING IT UP, BECAUSE ITS NOT DELIVERED YET FROM BLOOD BANK. WILL ENDORSE CARE TO PM NURSE. FALL/SAFETY PRECAUTIONS IN PLACE. BED IN LOW POSITION WITH BED ALARM ON. Addendum: 12/18/21 at 1835 by [facility], TALIB MAYERS DR. VILLASEÑOR IN THE UNIT, PER JUST DO TOTAL OF 2 UNITS OF PRBC TRANSFUSION. CANCEL 3RD UNIT.
--- NOTE | 2021-12-18 19:30 | NUR ---
PM OPENING NOTES HAND-OFF REPORT FROM A.M NURSE. 3 UNITS OF RBC ORDERED WITH 2ND INFUSING PRESENTLY. 3RD UNIT CANCELLED PER MD. TO COMPLETE 2ND UNIT. PT IN BED AWAKE. NO S/S OF REACTION.
[2021-12-18 20:01] VITALS: BP_SYST 103
--- NOTE | 2021-12-18 21:55 | NUR ---
2ND UNIT AND FINAL UNIT OF RBC'S COMPLETED. NO S/S OF REACTION. CONT. TO MONITOR AND ASSIST.
[2021-12-18] MEDS: FERROUS SULFATE 300 MG/5 ML UDC PO SCH (22:24)
[2021-12-18] MEDS: QUEtiapine FUMARATE 25 MG TABLET PO SCH (22:25)
[2021-12-18] MEDS: MEGESTROL ACETATE 400 MG/10 ML UDC PO SCH (22:25)
[2021-12-18] MEDS: ENOXAPARIN SODIUM 40 MG/0.4 ML SYRINGE SUBCUT SCH (22:26)
[2021-12-18] MEDS: ACETAMINOPHEN 325 MG TABLET PO PRN (22:31)
[2021-12-18] MEDS: INSULIN REGULAR, HUMAN 100 UNITS/ML, 10 ML VIAL (humuLIN R) SUBCUT PRN (22:34)
[2021-12-18] MEDS: MELATONIN 3 MG TABLET PO SCH (22:53)
[2021-12-19] VITALS (7 sets, daily range): BP systolic 103–144
--- NOTE | 2021-12-19 07:29 | NUR ---
Opening note: Report rcvd from outgoing NOC RN, all cares assumed. Patient in no acute distress and or discomfort, bed low and locked for safety. Call light in reach, all safety precautions in place.
--- NOTE | 2021-12-19 07:30 | NUR ---
PM CLOSING NOTES HAND OFF REPORT TO ONCOMING RN. ACCU CHECKS 152 AND 109. MEDICATED X1 FOR LEFT KNEE AND HIP DISCOMFORT. STOOLX1. DRESSING CHANGE X1 TO BUTTOCKS. APPEARS TO HAVE SLEPT WELL.
[2021-12-19] MEDS: QUEtiapine FUMARATE 25 MG TABLET PO SCH ×2 (08:30→22:05)
[2021-12-19] MEDS: FERROUS SULFATE 300 MG/5 ML UDC PO SCH ×2 (08:30→22:05)
[2021-12-19] MEDS: CHOLECALCIFEROL (VITAMIN D3) 5,000 UNIT TABLET PO SCH (08:30)
[2021-12-19] MEDS: MEGESTROL ACETATE 400 MG/10 ML UDC PO SCH ×2 (08:30→22:05)
[2021-12-19] MEDS: PANTOPRAZOLE SODIUM 40 MG TAB PO SCH (08:30)
[2021-12-19] MEDS: MULTIVITAMINS TAB 1 TABLET PO SCH (08:30)
[2021-12-19 08:34] LABS: BASOPHILS % (AUTO) 0.7 % (0.0-2.0); EOSINOPHILS # (AUTO) 0.3 K/uL (0.0-0.4); EOSINOPHILS % (AUTO) 5.3 % (0.0-4.0); HEMATOCRIT 25.2 % (36-54); LYMPHOCYTES # (AUTO) 0.7 K/uL (1.0-5.5); LYMPHOCYTES % (AUTO) 11.3 % (20.5-51.5); MONOCYTES # (AUTO) 0.6 K/uL (0.0-1.0); MONOCYTES % (AUTO) 8.9 % (1.7-9.3); NEUTROPHILS # (AUTO) 4.6 K/uL (1.8-7.7); NEUTROPHILS % (AUTO) 73.8 % (40.0-70.0); PLATELET COUNT (AUTO) 330 K/uL (130-430); RED BLOOD CELL COUNT(AUTO) 3.04 MIL/uL (4.2-6.2); RED CELL DISTRIBUTION WIDTH 18.8 % (9.0-15.0); WHITE BLOOD COUNT (AUTO) 6.3 K/uL (4.8-10.8)
[2021-12-19 08:37] LABS: ANION GAP 9 (5-15); CHLORIDE 106 mmol/L (98-107); CREATININE 1.19 mg/dL (0.55-1.30); GLUCOSE 88 mg/dL (70-99); POTASSIUM 4.2 mmol/L (3.5-5.1); SODIUM SERUM 136 mmol/L (136-145); UREA NITROGEN, BLOOD 15 mg/dL (8-21)
[2021-12-19 09:15] LABS: MEAN CORPUSCULAR VOLUME 83 fL (79.0-98.0)
--- NOTE | 2021-12-19 09:37 | NUR ---
Breakfast tray given, patient AO to person and place, no acute distress noted, Bed low and locked for safety, call light remains in reach. Patient demonstrated proper use of call light system.
--- NOTE | 2021-12-19 10:23 | NUR ---
8/10 Pain to left hip reported by patient, PRN Tylenol given.
[2021-12-19] MEDS: ACETAMINOPHEN 325 MG TABLET PO PRN ×2 (10:25→22:05)
--- NOTE | 2021-12-19 11:04 | NUR ---
Son called unit, updates given and all questions answered.
--- NOTE | 2021-12-19 11:45 | NUR ---
Patient noted with productive cough, copious amount of green and yellow sputum, aferile. MD aware, pending new orders.
[2021-12-19 12:55] LABS: HEMOGLOBIN 8.2 g/dL (14.0-18.0); MEAN CORPUSCULAR HEMOGLOBIN 27 pg (27-31); MEAN CORPUSCULAR HGB CONC 32 % (32-36)
--- NOTE | 2021-12-19 15:30 | NUR ---
Lab called with FLAVIO Positive Result - MRSA +
[2021-12-19 15:31] LABS: TOTAL IRON BIND. CAPACITY 176 ug/dL (250-450)
--- NOTE | 2021-12-19 16:28 | NUR ---
RN Rounds: Patient remains stable in no acute distress and or discomfort, all safety precautions in place. Needs met at this time, bed low and locked for safety.
[2021-12-19] MEDS: ASCORBIC ACID 500 MG TABLET PO SCH (17:16)
--- NOTE | 2021-12-19 18:19 | NUR ---
Dr. Smiley making rounds, bedside report given. MD to review chart and place orders. MD aware of MRSA result.
--- NOTE | 2021-12-19 18:25 | NUR ---
Dinner tray brought to bedside, patient remains stable calm and cooperative. Needs met at this time.
--- NOTE | 2021-12-19 18:45 | NUR ---
Closing Note: Report given to incoming NOC RN, all cares endorsed.
--- NOTE | 2021-12-19 19:30 | NUR ---
PM OPENING NOTES HAND-OFF REPORT RECEIVED FROM A.M NURSE FOLLOWS: CONTACT ISOLATION MRSA OF THE NARES, BACTROBAN ORDERED. START TOMORROW. TYLENOL X1 FOR LEFT HIP PAIN. RECEIVED IN BED AWAKE NO SIGNS OF DISTRESS. PLAN FOR NOC. DISPLAY MECHANIC SCHEDULED AND COMFORT MEASURES WITH HOURLY ROUNDS
[2021-12-19] MEDS: ENOXAPARIN SODIUM 40 MG/0.4 ML SYRINGE SUBCUT SCH (22:05)
[2021-12-19] MEDS: MELATONIN 3 MG TABLET PO SCH (22:05)
[2021-12-20 04:00] VITALS: BP_SYST 130
[2021-12-20 08:00] VITALS: BP_SYST 105
[2021-12-20] MEDS ORDERED: MUPIROCIN 1 GM OIN.PF.APP NS SCH (09:00)
[2021-12-20] MEDS ORDERED: FERROUS SULFATE 325 MG TABLET.DR PO ONE (10:00)
[2021-12-20] MEDS ORDERED: FOLIC ACID 1 MG TABLET PO ONE (10:00)
[2021-12-20 11:25] VITALS: BP_SYST 121
[2021-12-20] MEDS: MEGESTROL ACETATE 400 MG/10 ML UDC PO SCH ×2 (12:48→22:06)
[2021-12-20] MEDS: CHOLECALCIFEROL (VITAMIN D3) 5,000 UNIT TABLET PO SCH (12:49)
[2021-12-20] MEDS: PANTOPRAZOLE SODIUM 40 MG TAB PO SCH (12:49)
[2021-12-20] MEDS: MULTIVITAMINS TAB 1 TABLET PO SCH (12:50)
[2021-12-20] MEDS: QUEtiapine FUMARATE 25 MG TABLET PO SCH ×2 (12:50→22:07)
[2021-12-20 14:06] LABS: FOLATE (FOLIC ACID) 7.6 ng/mL (>3.0)
[2021-12-20 15:18] VITALS: BP_SYST 130
--- NOTE | 2021-12-20 15:58 | NUR ---
Dietitian Recommendations * Tamara WRIGHT, Arun BID (supplements yield 840 kcal/day, 35 gm protein/day) * Encourage increase PO intakes LP, MS, RD Please refer to Nutrition Assessment for details. Addendum: 12/20/21 at [address] Amended: Links added.
[2021-12-20] MEDS: ASCORBIC ACID 500 MG TABLET PO SCH (18:34)
[2021-12-20] MEDS: FERROUS SULFATE 325 MG TABLET.DR PO SCH (22:06)
[2021-12-20] MEDS: ENOXAPARIN SODIUM 40 MG/0.4 ML SYRINGE SUBCUT SCH (22:08)
[2021-12-20] MEDS: ACETAMINOPHEN 325 MG TABLET PO PRN (22:09)
[2021-12-20] MEDS: MELATONIN 3 MG TABLET PO SCH (22:29)
[2021-12-20] MEDS: MUPIROCIN 2% TOPICAL OINTMENT 22 GM NS SCH (22:30)
[2021-12-21] VITALS: BP_SYST 118
--- NOTE | 2021-12-21 | NUR ---
MIDWAY SHIFT SUMMARY PM ACCU CHECK 999. HS MEDS TAKEN WITHOUT HESITANCY. VILLANUEVA CATH QS CLEAR LETICIA URINE. AFEBRILE. REPOSITIONED LEFT LEG WITH BOOT APPLIED. TURKEY SANDWICH, CUP OF ICE COLD APPLE JUICE GIVEN WITH TYLENOL 650MG FOR PAIN. BLANKETS FROM THE OVEN AND TUCKED IN WITH LIGHTS OUT.
--- NOTE | 2021-12-21 07:30 | NUR ---
PM CLOSING NOTES HAND-OFF REPORT TO TK VSAQUEZ RN. A.M. ACCU CHECK 109. SLEPT WELL. NO CHANGES RELINQUISHED CARE OF PT AT THIS TIME.
[2021-12-21 08:00] VITALS: BP_SYST 107
[2021-12-21 09:34] LABS: BASOPHILS % (AUTO) 0.5 % (0.0-2.0); EOSINOPHILS # (AUTO) 0.2 K/uL (0.0-0.4); EOSINOPHILS % (AUTO) 2.5 % (0.0-4.0); HEMATOCRIT 27.3 % (36-54); LYMPHOCYTES # (AUTO) 0.7 K/uL (1.0-5.5); LYMPHOCYTES % (AUTO) 8.4 % (20.5-51.5); MEAN CORPUSCULAR VOLUME 82 fL (79.0-98.0); MONOCYTES # (AUTO) 0.4 K/uL (0.0-1.0); MONOCYTES % (AUTO) 4.1 % (1.7-9.3); NEUTROPHILS # (AUTO) 7.3 K/uL (1.8-7.7); NEUTROPHILS % (AUTO) 84.5 % (40.0-70.0); PLATELET COUNT (AUTO) 446 K/uL (130-430); RED BLOOD CELL COUNT(AUTO) 3.31 MIL/uL (4.2-6.2); RED CELL DISTRIBUTION WIDTH 19.1 % (9.0-15.0); WHITE BLOOD COUNT (AUTO) 8.7 K/uL (4.8-10.8)
[2021-12-21 10:19] LABS: ANION GAP 9 (5-15); CALCIUM 9.7 mg/dL (8.4-11.0); CHLORIDE 103 mmol/L (98-107); CREATININE 1.41 mg/dL (0.55-1.30); GLUCOSE 170 mg/dL (70-99); POTASSIUM 4.4 mmol/L (3.5-5.1); SODIUM SERUM 135 mmol/L (136-145); UREA NITROGEN, BLOOD 21 mg/dL (8-21)
[2021-12-21] MEDS: FOLIC ACID 1 MG TABLET PO SCH (10:23)
[2021-12-21] MEDS: CHOLECALCIFEROL (VITAMIN D3) 5,000 UNIT TABLET PO SCH (10:23)
[2021-12-21] MEDS: FERROUS SULFATE 325 MG TABLET.DR PO SCH (10:23)
[2021-12-21] MEDS: QUEtiapine FUMARATE 25 MG TABLET PO SCH (10:24)
[2021-12-21] MEDS: MEGESTROL ACETATE 400 MG/10 ML UDC PO SCH (10:24)
[2021-12-21] MEDS: MULTIVITAMINS TAB 1 TABLET PO SCH (10:24)
[2021-12-21 12:00] VITALS: BP_SYST 111
[2021-12-21] MEDS: PANTOPRAZOLE SODIUM 40 MG TAB PO SCH (13:06)
[2021-12-21] MEDS: MUPIROCIN 2% TOPICAL OINTMENT 22 GM NS SCH ×2 (15:31→21:00)
[2021-12-21 15:35] VITALS: BP_SYST 106
[2021-12-21] MEDS: ASCORBIC ACID 500 MG TABLET PO SCH (18:56)
[2021-12-21] MEDS: INSULIN REGULAR, HUMAN 100 UNITS/ML, 10 ML VIAL (humuLIN R) SUBCUT PRN (19:05)
--- NOTE | 2021-12-21 19:30 | NUR ---
PM OPENING NOTES HAND-OFF REPORT RECEIVED FROM TK RN FOLLOWING BEDSIDE ROUNDS. REPORTED: NO CHANGES. CONT'D BACTROBAN TO NARES STORED IN CASSETTE WELL MED CUP AT BEDSIDE. WOUND DRESSING INTACT. TURNED INSPITE OF PT WILL TO LIE IN ONE SPOT. VILLANUEVA TO GRAVITY FLOW LARGE AMT. HEELS ELEVATED WITH FOAM BOOTS ON AT ALL TIMES INSPITE OF PT PROTEST TO PREVENT FURTHER PRESSURE WOUNDS. GOOD DAY OVER-ALL. ASSUMED CARE OF PT AT THIS TIME.
[2021-12-21 20:00] VITALS: BP_SYST 124
[2021-12-22] VITALS: BP_SYST 117; BP_SYST 118
[2021-12-22] MEDS: MEGESTROL ACETATE 400 MG/10 ML UDC PO SCH ×2 (00:42→09:28)
[2021-12-22] MEDS: MELATONIN 3 MG TABLET PO SCH (00:42)
[2021-12-22] MEDS: FERROUS SULFATE 325 MG TABLET.DR PO SCH ×2 (00:42→09:28)
[2021-12-22] MEDS: ENOXAPARIN SODIUM 40 MG/0.4 ML SYRINGE SUBCUT SCH (00:43)
[2021-12-22] MEDS: QUEtiapine FUMARATE 25 MG TABLET PO SCH ×2 (00:43→09:28)
--- NOTE | 2021-12-22 02:00 | NUR ---
PM MID-SHIFT REPORT TYLENOL 650 MG WITH HS MEDS EFFECTIVE. PT SLEEPING SOUNDLY. ACCU CHECK 93 NO COVERAGE. ENJOYED TURKEY SANDWICH, ICE COLD APPLE JUICE BEFORE BED. VSS
--- NOTE | 2021-12-22 07:30 | NUR ---
PM CLOSING NOTES HAND-OFF REPORT TO ERNA MAYERS. UNEVENTFUL NIGHT. NO NEW ORDERS. NOTED SACRAL DRESSING CHANGE WHEN SOILED FROM STOOL AND NEEDED.
[2021-12-22 07:33] LABS: BASOPHILS % (AUTO) 0.4 % (0.0-2.0); EOSINOPHILS # (AUTO) 0.2 K/uL (0.0-0.4); EOSINOPHILS % (AUTO) 1.7 % (0.0-4.0); HEMATOCRIT 25.8 % (36-54); LYMPHOCYTES # (AUTO) 0.8 K/uL (1.0-5.5); LYMPHOCYTES % (AUTO) 7.7 % (20.5-51.5); MEAN CORPUSCULAR VOLUME 82 fL (79.0-98.0); MONOCYTES # (AUTO) 0.8 K/uL (0.0-1.0); MONOCYTES % (AUTO) 7.6 % (1.7-9.3); NEUTROPHILS # (AUTO) 8.5 K/uL (1.8-7.7); NEUTROPHILS % (AUTO) 82.6 % (40.0-70.0); PLATELET COUNT (AUTO) 417 K/uL (130-430); RED BLOOD CELL COUNT(AUTO) 3.14 MIL/uL (4.2-6.2); RED CELL DISTRIBUTION WIDTH 19.3 % (9.0-15.0); WHITE BLOOD COUNT (AUTO) 10.3 K/uL (4.8-10.8)
[2021-12-22 08:00] VITALS: BP_SYST 112
[2021-12-22 08:02] LABS: ANION GAP 8 (5-15); CALCIUM 9.4 mg/dL (8.4-11.0); CHLORIDE 103 mmol/L (98-107); CREATININE 1.39 mg/dL (0.55-1.30); GLUCOSE 97 mg/dL (70-99); POTASSIUM 4.9 mmol/L (3.5-5.1); SODIUM SERUM 135 mmol/L (136-145); UREA NITROGEN, BLOOD 26 mg/dL (8-21)
[2021-12-22] MEDS: FOLIC ACID 1 MG TABLET PO SCH (09:28)
[2021-12-22] MEDS: MULTIVITAMINS TAB 1 TABLET PO SCH (09:28)
[2021-12-22] MEDS: CHOLECALCIFEROL (VITAMIN D3) 5,000 UNIT TABLET PO SCH (09:28)
[2021-12-22] MEDS: PANTOPRAZOLE SODIUM 40 MG TAB PO SCH (09:28)
[2021-12-22] MEDS: MUPIROCIN 2% TOPICAL OINTMENT 22 GM NS SCH (09:33)
[2021-12-22 11:28] VITALS: BP_SYST 102
--- NOTE | 2021-12-22 12:07 | NUR ---
Discharge Planning: NIKKY faxed pt referral to [facility] [phone] KIMMYP to follow up Addendum: 12/22/21 at 1528 by Adriana Keane DP Tiffanie called from [facility] [phone] pt accepted to [facility], NIKKY arranged tranport with [facility] [phone] btw 5:30-6:00pm BLS. NIKKY made cm and nurse is aware. Patient packet taken to nurse station.
--- NOTE | 2021-12-22 15:05 | NUR ---
DISCHARGE PLANNING Per dc planner/scheduler pt accepted back at [facility]. Called & spoke with Dr Smiley & gave ph order to dc back to snf. Called glenn Allen, ph [phone], & no answer & mailbox not set up. Called & spoke with son Richard Bernstein, , is agreeable for dc back to [facility] today. Updated dc planner/scheduler.
[2021-12-22 15:31] VITALS: BP_SYST 114
[2021-12-22 17:38] VITALS: BP_SYST 114
[2021-12-22 17:41] VITALS: BP_SYST 114
== END 2021-12-22 18:30 | DRG 811 ==
LOC: SED 23:39 → SMU 12-18 08:30
PROVIDERS: ADMIT Family Medicine; ATTEND Family Medicine
PROC: 30233N1 Transfusion of Nonautologous Red Blood Cells into Peripheral Vein, Percutaneous Approach (ICD-10-PCS; principal; 2021-12-18)
DX: D50.9 Iron deficiency anemia, unspecified (principal); E43 Unspecified severe protein-calorie malnutrition; L89.324 Pressure ulcer of left buttock, stage 4; Z68.1 Body mass index [BMI] 19.9 or less, adult; E87.6 Hypokalemia; E11.22 Type 2 diabetes mellitus with diabetic chronic kidney disease; M19.90 Unspecified osteoarthritis, unspecified site; M81.0 Age-related osteoporosis without current pathological fracture; F03.90 Unspecified dementia, unspecified severity, without behavioral disturbance, psychotic disturbance, mood disturbance, and anxiety; Z20.822 Contact with and (suspected) exposure to COVID-19; D63.1 Anemia in chronic kidney disease; N18.9 Chronic kidney disease, unspecified; N40.0 Benign prostatic hyperplasia without lower urinary tract symptoms; F20.9 Schizophrenia, unspecified; Z74.01 Bed confinement status; Z87.891 Personal history of nicotine dependence
CPT/HCPCS: 36415; 36430; 72170-TC; 73564; 80048; 80053; 82272; 82607; 82728; 82746; 82962; 83540; 83550; 83735; 84484; 85025; 86886; 86900; 86901; 86920; 87081; 96372; 99291; 99292; J1650; J1815; J3490; P9021

== ENCOUNTER 2022-07-07 13:43 | Inpatient (IN) | payer OTHER, MEDICAID ==
[~2022-07-07] VITALS: Ht 152.4 cm; Wt 48.1 kg
[~2022-07-07 13:43] MED LIST changes: +ACET-73 PO; -ACET325C6 PO; +BISA-140 PO; +CALC-823 PO; +DIPH25CA83 PO; -DOCU-144 PO; -DONE10TA44 PO; +FER300L PO; -GLU500 PO; -LEVE500T21 PO; -MEMA10TA PO; +PRO40 PO; +SSREG SUBCUT; -TAMS-11 PO
[2022-07-07 13:50] VITALS: BP_SYST 119
[2022-07-07] MEDS ORDERED: CLINDAMYCIN 600 mg/50mL D5W 50 ML IV ONE (14:30)
[2022-07-07] MEDS ORDERED: MORPHINE 2 MG/ML INJ. SYRINGE IVP ONE (14:45)
[2022-07-07] MEDS ORDERED: CHOL50006 PO (15:15)
[2022-07-07] MEDS ORDERED: MELA3TAB55 PO (15:15)
[2022-07-07] MEDS ORDERED: LORA-1079 PO (15:15)
[2022-07-07] MEDS ORDERED: MEGE400O PO (15:15)
[2022-07-07] MEDS ORDERED: FERR325T91 PO (15:15)
[2022-07-07] MEDS ORDERED: FOLI-43 PO (15:15)
[2022-07-07] MEDS ORDERED: EPIN0.3P3 IM (15:15)
[2022-07-07] MEDS ORDERED: LEVE500T9 PO (15:15)
[2022-07-07] MEDS ORDERED: ASC500 PO (15:15)
[2022-07-07 15:26] LABS: BASOPHILS % (AUTO) 0.2 % (0.0-2.0); EOSINOPHILS # (AUTO) 0.2 K/uL (0.0-0.4); EOSINOPHILS % (AUTO) 1.6 % (0.0-4.0); HEMATOCRIT 26.3 % (36-54); HEMOGLOBIN 8.8 g/dL (14.0-18.0); LYMPHOCYTES # (AUTO) 0.6 K/uL (1.0-5.5); LYMPHOCYTES % (AUTO) 5.5 % (20.5-51.5); MEAN CORPUSCULAR HEMOGLOBIN 29 pg (27-31); MEAN CORPUSCULAR HGB CONC 33 % (32-36); MEAN CORPUSCULAR VOLUME 86 fL (79.0-98.0); MONOCYTES # (AUTO) 0.6 K/uL (0.0-1.0); MONOCYTES % (AUTO) 5.4 % (1.7-9.3); NEUTROPHILS % (AUTO) 87.3 % (40.0-70.0); PLATELET COUNT (AUTO) 439 K/uL (130-430); RED BLOOD CELL COUNT(AUTO) 3.05 MIL/uL (4.2-6.2); RED CELL DISTRIBUTION WIDTH 15.6 % (9.0-15.0); WHITE BLOOD COUNT (AUTO) 11.4 K/uL (4.8-10.8)
[2022-07-07] MEDS ORDERED: KETAMINE 30 MG/3 ML SYRINGE IVP ONE (15:45)
[2022-07-07 15:48] LABS: ALANINE AMINOTRANSFERASE 62 U/L (12-78); ALBUMIN 2.4 g/dL (3.4-4.8); ANION GAP 8 (5-15); ASPARTATE AMINOTRANSFERASE 27 U/L (10-37); CALCIUM 8.9 mg/dL (8.4-11.0); CHLORIDE 105 mmol/L (98-107); CREATININE 1.25 mg/dL (0.55-1.30); GLUCOSE 94 mg/dL (70-99); TOTAL BILIRUBIN 0.2 mg/dL (0.0-1.0); UREA NITROGEN, BLOOD 43 mg/dL (8-21)
[2022-07-07] MEDS ORDERED: QUET25TA36 PO (15:48)
[2022-07-07] MEDS ORDERED: MULT-598 PO (15:48)
[2022-07-07] MEDS ORDERED: TRAM50TA PO (15:48)
[2022-07-07] MEDS ORDERED: PANT40SU2 PO (15:48)
[2022-07-07] MEDS ORDERED: SSREG (15:48)
[2022-07-07 16:03] LABS: C-REACTIVE PROTEIN QUANT 22.8 mg/dL (0-0.5)
[2022-07-07] MEDS ORDERED: LORazepam 2 MG/ML VIAL IVP ONE (17:30)
[2022-07-07] MEDS ORDERED: CALCIUM CARBONATE/VITAMIN D3 1 TAB TABLET PO PRN (18:45)
[2022-07-07] MEDS ORDERED: ACETAMINOPHEN 325 MG TABLET PO PRN (19:00)
[2022-07-07] MEDS ORDERED: NALOXONE HCL 0.4 MG/ML AMP (NARCAN) IVP PRN (19:00)
[2022-07-07 19:50] VITALS: BP_SYST 146
[2022-07-07] MEDS: ENOXAPARIN SODIUM 40 MG/0.4 ML SYRINGE SUBCUT SCH (20:48)
[2022-07-07] MEDS: levETIRAcetam 500 MG TABLET PO SCH (21:09)
[2022-07-07] MEDS: MEGESTROL ACETATE 400 MG/10 ML UDC PO SCH (21:09)
[2022-07-07] MEDS: QUEtiapine FUMARATE 25 MG TABLET PO SCH (21:09)
[2022-07-07] MEDS: FOLIC ACID 1 MG TABLET PO SCH (21:09)
[2022-07-07] MEDS: MELATONIN 3 MG TABLET PO SCH (21:09)
[2022-07-07] MEDS: traMADol HCL HCL 50 MG TABLET (ULTRAM) PO SCH (21:10)
[2022-07-07] MEDS: KCL 20 mEq in 0.45% NS 1000 mL 1,000 ML IV SCH (23:37)
[2022-07-07] MEDS: VANCOMYCIN HCL 1,000 MG in NS 250 ML IV SCH (23:39)
[2022-07-07] MEDS: CEFEPIME 1 GM in D5W 50 ML IV SCH (23:40)
[2022-07-07] MEDS: HYDROmorphone 1 MG/ML INJ. CARTRIDGE IVP PRN (23:50)
[2022-07-08] MEDS ORDERED: BISACODYL 5 MG TABLET.DR (DULCOLAX) PO PRN
[2022-07-08 00:32] VITALS: BP_SYST 117
[2022-07-08] MEDS ORDERED: GLUCOSE (DEXTROSE) ORAL GEL -Adults PO PRN (06:30)
[2022-07-08] MEDS ORDERED: D5W 1,000 ML IV PRN (06:30)
[2022-07-08] MEDS ORDERED: GLUCAGON,HUMAN RECOMBINANT 1 MG VIAL IM ONE ×2 (06:30→06:45)
[2022-07-08] MEDS ORDERED: GLUCAGON,HUMAN RECOMBINANT 1 MG VIAL ONE (06:31)
[2022-07-08 07:00] LABS: ANION GAP 8 (5-15); CHLORIDE 107 mmol/L (98-107); CREATININE 0.99 mg/dL (0.55-1.30); GLUCOSE 70 mg/dL (70-99); UREA NITROGEN, BLOOD 33 mg/dL (8-21)
[2022-07-08 08:28] VITALS: BP_SYST 103
[2022-07-08] MEDS: QUEtiapine FUMARATE 25 MG TABLET PO SCH ×2 (09:39→21:54)
[2022-07-08] MEDS: levETIRAcetam 500 MG TABLET PO SCH ×2 (09:41→21:52)
[2022-07-08] MEDS: MULTIVITAMINS TAB 1 TABLET PO SCH (09:42)
[2022-07-08] MEDS: MEGESTROL ACETATE 400 MG/10 ML UDC PO SCH ×2 (09:42→21:49)
[2022-07-08] MEDS: PANTOPRAZOLE SODIUM 40 MG TAB PO SCH (09:43)
[2022-07-08] MEDS: CHOLECALCIFEROL (VITAMIN D3) 5,000 UNIT TABLET PO SCH (09:43)
[2022-07-08] MEDS: FOLIC ACID 1 MG TABLET PO SCH ×2 (09:43→21:49)
[2022-07-08] MEDS: LORATADINE 10 MG TABLET PO SCH (09:43)
[2022-07-08] MEDS: FERROUS SULFATE 325 MG TABLET.DR PO SCH (09:43)
[2022-07-08] MEDS: traMADol HCL HCL 50 MG TABLET (ULTRAM) PO SCH ×2 (09:45→21:56)
[2022-07-08 11:23] VITALS: BP_SYST 109
[2022-07-08 15:19] VITALS: BP_SYST 118
[2022-07-08] MEDS: ASCORBIC ACID 500 MG TABLET PO SCH (17:28)
[2022-07-08] MEDS: HYDROmorphone 1 MG/ML INJ. CARTRIDGE IVP PRN (18:54)
[2022-07-08] MEDS: KCL 20 mEq in 0.45% NS 1000 mL 1,000 ML IV SCH (19:00)
[2022-07-08] MEDS: CEFEPIME 1 GM in D5W 50 ML IV SCH (21:09)
[2022-07-08] MEDS: MELATONIN 3 MG TABLET PO SCH (21:53)
[2022-07-08] MEDS: ENOXAPARIN SODIUM 40 MG/0.4 ML SYRINGE SUBCUT SCH (22:01)
[2022-07-08] MEDS: VANCOMYCIN HCL 1,000 MG in NS 250 ML IV SCH (22:01)
[2022-07-09] MEDS: KCL 20 mEq in 0.45% NS 1000 mL 1,000 ML IV SCH ×3 (00:51→23:12)
[2022-07-09 01:49] VITALS: BP_SYST 121
[2022-07-09 05:57] LABS: BASOPHILS % (AUTO) 0.3 % (0.0-2.0); EOSINOPHILS # (AUTO) 0.2 K/uL (0.0-0.4); EOSINOPHILS % (AUTO) 1.6 % (0.0-4.0); HEMATOCRIT 24.7 % (36-54); HEMOGLOBIN 8.1 g/dL (14.0-18.0); LYMPHOCYTES # (AUTO) 0.6 K/uL (1.0-5.5); LYMPHOCYTES % (AUTO) 4.2 % (20.5-51.5); MEAN CORPUSCULAR HEMOGLOBIN 28 pg (27-31); MEAN CORPUSCULAR HGB CONC 33 % (32-36); MEAN CORPUSCULAR VOLUME 86 fL (79.0-98.0); MONOCYTES # (AUTO) 0.4 K/uL (0.0-1.0); MONOCYTES % (AUTO) 3.1 % (1.7-9.3); NEUTROPHILS # (AUTO) 12.3 K/uL (1.8-7.7); NEUTROPHILS % (AUTO) 90.8 % (40.0-70.0); PLATELET COUNT (AUTO) 344 K/uL (130-430); RED BLOOD CELL COUNT(AUTO) 2.86 MIL/uL (4.2-6.2); RED CELL DISTRIBUTION WIDTH 15.7 % (9.0-15.0); WHITE BLOOD COUNT (AUTO) 13.5 K/uL (4.8-10.8)
[2022-07-09 06:16] LABS: ANION GAP 10 (5-15); CALCIUM 8.4 mg/dL (8.4-11.0); CHLORIDE 105 mmol/L (98-107); GLUCOSE 83 mg/dL (70-99); UREA NITROGEN, BLOOD 29 mg/dL (8-21)
[2022-07-09] MEDS: DEXTROSE 50% JECT 50 ML DISP.SYRIN IVP PRN ×4 (07:10→20:20)
[2022-07-09 08:16] VITALS: BP_SYST 107
[2022-07-09] MEDS: QUEtiapine FUMARATE 25 MG TABLET PO SCH ×2 (09:31→22:34)
[2022-07-09] MEDS: MEGESTROL ACETATE 400 MG/10 ML UDC PO SCH ×2 (09:31→22:33)
[2022-07-09] MEDS: traMADol HCL HCL 50 MG TABLET (ULTRAM) PO SCH ×2 (09:32→22:34)
[2022-07-09] MEDS: levETIRAcetam 500 MG TABLET PO SCH ×2 (09:32→22:34)
[2022-07-09] MEDS: CHOLECALCIFEROL (VITAMIN D3) 5,000 UNIT TABLET PO SCH (09:32)
[2022-07-09] MEDS: PANTOPRAZOLE SODIUM 40 MG TAB PO SCH (09:33)
[2022-07-09] MEDS: MULTIVITAMINS TAB 1 TABLET PO SCH (09:33)
[2022-07-09] MEDS: FERROUS SULFATE 325 MG TABLET.DR PO SCH (09:33)
[2022-07-09] MEDS: FOLIC ACID 1 MG TABLET PO SCH ×2 (09:33→22:34)
[2022-07-09] MEDS: LORATADINE 10 MG TABLET PO SCH (09:33)
[2022-07-09] MEDS: HYDROmorphone 1 MG/ML INJ. CARTRIDGE IVP PRN ×2 (10:53→17:35)
[2022-07-09 11:27] VITALS: BP_SYST 123
[2022-07-09] MEDS ORDERED: FLUCONAZOLE 100 MG TABLET (DIFLUCAN) PO ONE (13:15)
[2022-07-09] MEDS ORDERED: *PPN PER PHARMACY XX PRN (14:30)
[2022-07-09 15:25] VITALS: BP_SYST 111
[2022-07-09] MEDS: ASCORBIC ACID 500 MG TABLET PO SCH (18:00)
[2022-07-09 20:00] VITALS: BP_SYST 113
[2022-07-09] MEDS ORDERED: MUPIROCIN 1 GM OIN.PF.APP NS SCH (21:00)
[2022-07-09] MEDS: ENOXAPARIN SODIUM 40 MG/0.4 ML SYRINGE SUBCUT SCH (22:35)
[2022-07-09] MEDS: MELATONIN 3 MG TABLET PO SCH (22:36)
[2022-07-09] MEDS: MUPIROCIN 2% TOPICAL OINTMENT 22 GM TP SCH (22:36)
[2022-07-09] MEDS: VANCOMYCIN HCL 1,000 MG in NS 250 ML IV SCH (22:42)
[2022-07-10 00:36] VITALS: BP_SYST 108
[2022-07-10 05:38] LABS: BASOPHILS % (AUTO) 0.5 % (0.0-2.0); EOSINOPHILS # (AUTO) 0.3 K/uL (0.0-0.4); EOSINOPHILS % (AUTO) 3.3 % (0.0-4.0); HEMATOCRIT 22.5 % (36-54); HEMOGLOBIN 7.5 g/dL (14.0-18.0); LYMPHOCYTES # (AUTO) 1.1 K/uL (1.0-5.5); LYMPHOCYTES % (AUTO) 11.1 % (20.5-51.5); MEAN CORPUSCULAR HEMOGLOBIN 29 pg (27-31); MEAN CORPUSCULAR HGB CONC 33 % (32-36); MEAN CORPUSCULAR VOLUME 86 fL (79.0-98.0); MONOCYTES # (AUTO) 0.4 K/uL (0.0-1.0); MONOCYTES % (AUTO) 4.4 % (1.7-9.3); NEUTROPHILS # (AUTO) 7.8 K/uL (1.8-7.7); NEUTROPHILS % (AUTO) 80.7 % (40.0-70.0); PLATELET COUNT (AUTO) 293 K/uL (130-430); RED BLOOD CELL COUNT(AUTO) 2.62 MIL/uL (4.2-6.2); RED CELL DISTRIBUTION WIDTH 15.7 % (9.0-15.0); WHITE BLOOD COUNT (AUTO) 9.7 K/uL (4.8-10.8)
[2022-07-10] MEDS: DEXTROSE 50% JECT 50 ML DISP.SYRIN IVP PRN (06:07)
[2022-07-10 06:09] LABS: ALANINE AMINOTRANSFERASE 31 U/L (12-78); ALBUMIN 2.1 g/dL (3.4-4.8); ANION GAP 8 (5-15); ASPARTATE AMINOTRANSFERASE 21 U/L (10-37); CALCIUM 8.6 mg/dL (8.4-11.0); CHLORIDE 104 mmol/L (98-107); GLUCOSE 69 mg/dL (70-99); PHOSPHORUS 3.3 mg/dL (2.7-4.5); TOTAL BILIRUBIN 0.2 mg/dL (0.0-1.0); TRIGLYCERIDES 100 mg/dL (30-150); UREA NITROGEN, BLOOD 17 mg/dL (8-21)
[2022-07-10 07:57] VITALS: BP_SYST 107
[2022-07-10] MEDS: KCL 20 mEq in 0.45% NS 1000 mL 1,000 ML IV SCH ×3 (08:52→21:00)
[2022-07-10] MEDS: traMADol HCL HCL 50 MG TABLET (ULTRAM) PO SCH ×2 (08:53→20:50)
[2022-07-10] MEDS: MEGESTROL ACETATE 400 MG/10 ML UDC PO SCH ×2 (08:53→20:42)
[2022-07-10] MEDS: FOLIC ACID 1 MG TABLET PO SCH ×2 (08:54→20:42)
[2022-07-10] MEDS: FLUCONAZOLE 100 MG TABLET (DIFLUCAN) PO SCH (08:54)
[2022-07-10] MEDS: CHOLECALCIFEROL (VITAMIN D3) 5,000 UNIT TABLET PO SCH (08:54)
[2022-07-10] MEDS: LORATADINE 10 MG TABLET PO SCH (08:54)
[2022-07-10] MEDS: levETIRAcetam 500 MG TABLET PO SCH ×2 (08:54→20:42)
[2022-07-10] MEDS: PANTOPRAZOLE SODIUM 40 MG TAB PO SCH (08:54)
[2022-07-10] MEDS: MULTIVITAMINS TAB 1 TABLET PO SCH (08:54)
[2022-07-10] MEDS: FERROUS SULFATE 325 MG TABLET.DR PO SCH (08:54)
[2022-07-10] MEDS: QUEtiapine FUMARATE 25 MG TABLET PO SCH ×2 (08:54→20:42)
[2022-07-10] MEDS: VANCOMYCIN HCL 750 MG in NS 250 ML IV SCH ×2 (09:15→20:41)
[2022-07-10] MEDS: MUPIROCIN 2% TOPICAL OINTMENT 22 GM TP SCH ×2 (09:18→20:42)
[2022-07-10 11:25] VITALS: BP_SYST 135
[2022-07-10 15:22] VITALS: BP_SYST 106
[2022-07-10] MEDS: DIPHENHYDRAMINE HCL 25 MG CAPSULE PO PRN (15:45)
[2022-07-10] MEDS: ASCORBIC ACID 500 MG TABLET PO SCH (17:53)
[2022-07-10 20:00] VITALS: BP_SYST 116
[2022-07-10] MEDS: ENOXAPARIN SODIUM 40 MG/0.4 ML SYRINGE SUBCUT SCH (20:42)
[2022-07-10] MEDS: MELATONIN 3 MG TABLET PO SCH (20:43)
[2022-07-10] MEDS ORDERED: TPN PERIPHERAL IV SCH ×6 (21:00)
[2022-07-10] MEDS ORDERED: TRACE ELEMENTS IV SCH ×6 (21:00)
[2022-07-10] MEDS ORDERED: [UNRECOGNIZED DRUG - OTHER] IV SCH ×6 (21:00)
[2022-07-10] MEDS ORDERED: MVI IV SCH ×6 (21:00)
[2022-07-10] MEDS ORDERED: SODIUM ACETATE IV SCH ×6 (21:00)
[2022-07-10] MEDS: FAT EMULSIONS 250 ML IV SCH (21:04)
[2022-07-11 00:33] VITALS: BP_SYST 121
[2022-07-11 05:25] LABS: BASOPHILS % (AUTO) 0.4 % (0.0-2.0); EOSINOPHILS # (AUTO) 0.2 K/uL (0.0-0.4); EOSINOPHILS % (AUTO) 2.6 % (0.0-4.0); HEMATOCRIT 22.8 % (36-54); HEMOGLOBIN 7.6 g/dL (14.0-18.0); LYMPHOCYTES # (AUTO) 0.5 K/uL (1.0-5.5); LYMPHOCYTES % (AUTO) 6.5 % (20.5-51.5); MEAN CORPUSCULAR HEMOGLOBIN 29 pg (27-31); MEAN CORPUSCULAR HGB CONC 34 % (32-36); MEAN CORPUSCULAR VOLUME 85 fL (79.0-98.0); MONOCYTES # (AUTO) 0.3 K/uL (0.0-1.0); MONOCYTES % (AUTO) 3.9 % (1.7-9.3); NEUTROPHILS # (AUTO) 6.7 K/uL (1.8-7.7); NEUTROPHILS % (AUTO) 86.6 % (40.0-70.0); PLATELET COUNT (AUTO) 317 K/uL (130-430); RED BLOOD CELL COUNT(AUTO) 2.67 MIL/uL (4.2-6.2); RED CELL DISTRIBUTION WIDTH 15.6 % (9.0-15.0); WHITE BLOOD COUNT (AUTO) 7.8 K/uL (4.8-10.8)
[2022-07-11 05:38] LABS: TOTAL IRON BIND. CAPACITY 219 ug/dL (250-450)
[2022-07-11 05:43] LABS: ALANINE AMINOTRANSFERASE 30 U/L (12-78); ALBUMIN 2.1 g/dL (3.4-4.8); ANION GAP 5 (5-15); ASPARTATE AMINOTRANSFERASE 21 U/L (10-37); CALCIUM 8.6 mg/dL (8.4-11.0); CHLORIDE 104 mmol/L (98-107); GLUCOSE 96 mg/dL (70-99); PHOSPHORUS 3.4 mg/dL (2.7-4.5); TOTAL BILIRUBIN 0.2 mg/dL (0.0-1.0); UREA NITROGEN, BLOOD 12 mg/dL (8-21)
[2022-07-11] MEDS: KCL 20 mEq in 0.45% NS 1000 mL 1,000 ML IV SCH (05:59)
[2022-07-11 08:36] VITALS: BP_SYST 111
[2022-07-11] MEDS: MEGESTROL ACETATE 400 MG/10 ML UDC PO SCH ×2 (09:40→21:23)
[2022-07-11] MEDS: CHOLECALCIFEROL (VITAMIN D3) 5,000 UNIT TABLET PO SCH (09:40)
[2022-07-11] MEDS: FLUCONAZOLE 100 MG TABLET (DIFLUCAN) PO SCH (09:40)
[2022-07-11] MEDS: LORATADINE 10 MG TABLET PO SCH (09:40)
[2022-07-11] MEDS: QUEtiapine FUMARATE 25 MG TABLET PO SCH ×2 (09:40→21:22)
[2022-07-11] MEDS: MULTIVITAMINS TAB 1 TABLET PO SCH (09:41)
[2022-07-11] MEDS: FERROUS SULFATE 325 MG TABLET.DR PO SCH (09:41)
[2022-07-11] MEDS: PANTOPRAZOLE SODIUM 40 MG TAB PO SCH (09:41)
[2022-07-11] MEDS: levETIRAcetam 500 MG TABLET PO SCH ×2 (09:41→21:22)
[2022-07-11] MEDS: FOLIC ACID 1 MG TABLET PO SCH ×2 (09:41→21:22)
[2022-07-11] MEDS: traMADol HCL HCL 50 MG TABLET (ULTRAM) PO SCH ×2 (09:42→21:22)
[2022-07-11] MEDS: VANCOMYCIN HCL 750 MG in NS 250 ML IV SCH ×2 (09:42→23:16)
[2022-07-11] MEDS: MUPIROCIN 2% TOPICAL OINTMENT 22 GM TP SCH ×2 (11:17→21:23)
[2022-07-11 11:23] VITALS: BP_SYST 91
[2022-07-11 15:32] VITALS: BP_SYST 101
[2022-07-11] MEDS: ASCORBIC ACID 500 MG TABLET PO SCH (18:29)
[2022-07-11] MEDS: SOD FERRIC GLUC COMPLEX/SUC 125 MG in NS 100 ML IV SCH (18:30)
[2022-07-11 20:00] VITALS: BP_SYST 136
[2022-07-11] MEDS: ENOXAPARIN SODIUM 40 MG/0.4 ML SYRINGE SUBCUT SCH (21:22)
[2022-07-11] MEDS: MELATONIN 3 MG TABLET PO SCH (21:30)
[2022-07-11] MEDS: FAT EMULSIONS 250 ML IV SCH (23:19)
[2022-07-11] MEDS: TRACE ELEMENTS IV SCH ×6 (23:21)
[2022-07-11] MEDS: MVI IV SCH ×6 (23:21)
[2022-07-11] MEDS: SODIUM ACETATE IV SCH ×6 (23:21)
[2022-07-11] MEDS: TPN PERIPHERAL IV SCH ×6 (23:21)
[2022-07-11] MEDS: [UNRECOGNIZED DRUG - OTHER] IV SCH ×6 (23:21)
[2022-07-12 00:03] VITALS: BP_SYST 122
[2022-07-12 08:00] VITALS: BP_SYST 145
[2022-07-12 08:24] LABS: ALANINE AMINOTRANSFERASE 28 U/L (12-78); ALBUMIN 2.2 g/dL (3.4-4.8); ANION GAP 7 (5-15); ASPARTATE AMINOTRANSFERASE 19 U/L (10-37); CALCIUM 8.7 mg/dL (8.4-11.0); CHLORIDE 104 mmol/L (98-107); CREATININE 0.86 mg/dL (0.55-1.30); GLUCOSE 99 mg/dL (70-99); PHOSPHORUS 3.1 mg/dL (2.7-4.5); TOTAL BILIRUBIN 0.1 mg/dL (0.0-1.0); UREA NITROGEN, BLOOD 14 mg/dL (8-21)
[2022-07-12] MEDS: VANCOMYCIN HCL 750 MG in NS 250 ML IV SCH ×2 (10:28→20:55)
[2022-07-12] MEDS: MEGESTROL ACETATE 400 MG/10 ML UDC PO SCH ×2 (11:14→20:49)
[2022-07-12] MEDS: CHOLECALCIFEROL (VITAMIN D3) 5,000 UNIT TABLET PO SCH (11:14)
[2022-07-12] MEDS: levETIRAcetam 500 MG TABLET PO SCH ×2 (11:14→20:49)
[2022-07-12] MEDS: PANTOPRAZOLE SODIUM 40 MG TAB PO SCH (11:14)
[2022-07-12] MEDS: LORATADINE 10 MG TABLET PO SCH (11:16)
[2022-07-12] MEDS: traMADol HCL HCL 50 MG TABLET (ULTRAM) PO SCH ×2 (11:16→20:49)
[2022-07-12] MEDS: FLUCONAZOLE 100 MG TABLET (DIFLUCAN) PO SCH (11:17)
[2022-07-12] MEDS: FERROUS SULFATE 325 MG TABLET.DR PO SCH (11:17)
[2022-07-12] MEDS: FOLIC ACID 1 MG TABLET PO SCH ×2 (11:17→20:48)
[2022-07-12] MEDS: MULTIVITAMINS TAB 1 TABLET PO SCH (11:18)
[2022-07-12] MEDS: MUPIROCIN 2% TOPICAL OINTMENT 22 GM TP SCH ×2 (11:19→20:50)
[2022-07-12] MEDS: QUEtiapine FUMARATE 25 MG TABLET PO SCH ×2 (11:28→20:48)
[2022-07-12 11:46] VITALS: BP_SYST 116
[2022-07-12] MEDS: KCL 20 mEq in 0.45% NS 1000 mL 1,000 ML IV SCH (13:05)
[2022-07-12] MEDS: ASCORBIC ACID 500 MG TABLET PO SCH (17:40)
[2022-07-12] MEDS: SOD FERRIC GLUC COMPLEX/SUC 125 MG in NS 100 ML IV SCH (17:42)
[2022-07-12 18:18] VITALS: BP_SYST 136
[2022-07-12] MEDS: FAT EMULSIONS 250 ML IV SCH (20:47)
[2022-07-12] MEDS: MVI IV SCH ×6 (20:48)
[2022-07-12] MEDS: ENOXAPARIN SODIUM 40 MG/0.4 ML SYRINGE SUBCUT SCH (20:48)
[2022-07-12] MEDS: [UNRECOGNIZED DRUG - OTHER] IV SCH ×6 (20:48)
[2022-07-12] MEDS: SODIUM ACETATE IV SCH ×6 (20:48)
[2022-07-12] MEDS: TPN PERIPHERAL IV SCH ×6 (20:48)
[2022-07-12] MEDS: TRACE ELEMENTS IV SCH ×6 (20:48)
[2022-07-12] MEDS: MELATONIN 3 MG TABLET PO SCH (20:49)
[2022-07-13 00:11] VITALS: BP_SYST 141
[2022-07-13 06:25] LABS: BASOPHILS # (AUTO) 0.1 K/uL (0.0-0.2); BASOPHILS % (AUTO) 0.5 % (0.0-2.0); EOSINOPHILS # (AUTO) 0.2 K/uL (0.0-0.4); HEMATOCRIT 24.5 % (36-54); LYMPHOCYTES # (AUTO) 0.7 K/uL (1.0-5.5); LYMPHOCYTES % (AUTO) 5.7 % (20.5-51.5); MEAN CORPUSCULAR HEMOGLOBIN 28 pg (27-31); MEAN CORPUSCULAR HGB CONC 33 % (32-36); MEAN CORPUSCULAR VOLUME 87 fL (79.0-98.0); MONOCYTES # (AUTO) 0.5 K/uL (0.0-1.0); MONOCYTES % (AUTO) 3.8 % (1.7-9.3); NEUTROPHILS # (AUTO) 10.8 K/uL (1.8-7.7); PLATELET COUNT (AUTO) 318 K/uL (130-430); RED BLOOD CELL COUNT(AUTO) 2.83 MIL/uL (4.2-6.2); RED CELL DISTRIBUTION WIDTH 15.8 % (9.0-15.0); WHITE BLOOD COUNT (AUTO) 12.2 K/uL (4.8-10.8)
[2022-07-13 06:54] LABS: ALANINE AMINOTRANSFERASE 26 U/L (12-78); ALBUMIN 2.3 g/dL (3.4-4.8); ANION GAP 7 (5-15); ASPARTATE AMINOTRANSFERASE 22 U/L (10-37); CALCIUM 8.8 mg/dL (8.4-11.0); CHLORIDE 103 mmol/L (98-107); CREATININE 0.98 mg/dL (0.55-1.30); GLUCOSE 92 mg/dL (70-99); PHOSPHORUS 2.9 mg/dL (2.7-4.5); TOTAL BILIRUBIN 0.2 mg/dL (0.0-1.0); UREA NITROGEN, BLOOD 22 mg/dL (8-21)
[2022-07-13 08:00] VITALS: BP_SYST 115
[2022-07-13 08:06] LABS: FOLATE (FOLIC ACID) >20.0 ng/mL (>3.0)
[2022-07-13] MEDS: traMADol HCL HCL 50 MG TABLET (ULTRAM) PO SCH ×2 (09:00→21:56)
[2022-07-13 09:06] LABS: FERRITIN 165 ng/mL (30-400)
[2022-07-13] MEDS: VANCOMYCIN HCL 750 MG in NS 250 ML IV SCH ×2 (10:07→22:07)
[2022-07-13] MEDS: CHOLECALCIFEROL (VITAMIN D3) 5,000 UNIT TABLET PO SCH (10:07)
[2022-07-13] MEDS: MEGESTROL ACETATE 400 MG/10 ML UDC PO SCH ×2 (10:07→21:57)
[2022-07-13] MEDS: FOLIC ACID 1 MG TABLET PO SCH ×2 (10:08→21:56)
[2022-07-13] MEDS: MULTIVITAMINS TAB 1 TABLET PO SCH (10:08)
[2022-07-13] MEDS: levETIRAcetam 500 MG TABLET PO SCH ×2 (10:08→21:56)
[2022-07-13] MEDS: FERROUS SULFATE 325 MG TABLET.DR PO SCH (10:08)
[2022-07-13] MEDS: FLUCONAZOLE 100 MG TABLET (DIFLUCAN) PO SCH (10:08)
[2022-07-13] MEDS: LORATADINE 10 MG TABLET PO SCH (10:08)
[2022-07-13] MEDS: PANTOPRAZOLE SODIUM 40 MG TAB PO SCH (10:18)
[2022-07-13] MEDS: QUEtiapine FUMARATE 25 MG TABLET PO SCH ×2 (10:18→21:56)
[2022-07-13] MEDS: MUPIROCIN 2% TOPICAL OINTMENT 22 GM TP SCH ×2 (10:19→21:57)
[2022-07-13] MEDS: HYDROmorphone 1 MG/ML INJ. CARTRIDGE IVP PRN ×2 (10:48→18:22)
[2022-07-13 11:24] VITALS: BP_SYST 124
[2022-07-13 15:09] VITALS: BP_SYST 131
[2022-07-13] MEDS: SOD FERRIC GLUC COMPLEX/SUC 125 MG in NS 100 ML IV SCH (17:13)
[2022-07-13] MEDS: ASCORBIC ACID 500 MG TABLET PO SCH (18:00)
[2022-07-13] MEDS: KCL 20 mEq in 0.45% NS 1000 mL 1,000 ML IV SCH (18:29)
[2022-07-13 20:00] VITALS: BP_SYST 146
[2022-07-13] MEDS ORDERED: TPN PERIPHERAL IV SCH ×7 (21:00)
[2022-07-13] MEDS ORDERED: NA PHOS IV SCH ×7 (21:00)
[2022-07-13] MEDS ORDERED: [UNRECOGNIZED DRUG - OTHER] IV SCH ×7 (21:00)
[2022-07-13] MEDS ORDERED: MVI IV SCH ×7 (21:00)
[2022-07-13] MEDS ORDERED: SODIUM ACETATE IV SCH ×7 (21:00)
[2022-07-13] MEDS: DIPHENHYDRAMINE HCL 25 MG CAPSULE PO PRN (21:56)
[2022-07-13] MEDS: ENOXAPARIN SODIUM 40 MG/0.4 ML SYRINGE SUBCUT SCH (21:57)
[2022-07-13] MEDS: MELATONIN 3 MG TABLET PO SCH (21:57)
[2022-07-13] MEDS: FAT EMULSIONS 250 ML IV SCH (22:09)
[2022-07-14 00:45] VITALS: BP_SYST 115
[2022-07-14] MEDS: HYDROmorphone 1 MG/ML INJ. CARTRIDGE IVP PRN ×2 (04:12→16:13)
[2022-07-14 08:08] VITALS: BP_SYST 153
[2022-07-14] MEDS: CHOLECALCIFEROL (VITAMIN D3) 5,000 UNIT TABLET PO SCH (08:41)
[2022-07-14] MEDS: levETIRAcetam 500 MG TABLET PO SCH ×2 (08:41→20:22)
[2022-07-14] MEDS: PANTOPRAZOLE SODIUM 40 MG TAB PO SCH (08:41)
[2022-07-14] MEDS: QUEtiapine FUMARATE 25 MG TABLET PO SCH ×2 (08:41→20:22)
[2022-07-14] MEDS: FLUCONAZOLE 100 MG TABLET (DIFLUCAN) PO SCH (08:41)
[2022-07-14] MEDS: MULTIVITAMINS TAB 1 TABLET PO SCH (08:41)
[2022-07-14] MEDS: FOLIC ACID 1 MG TABLET PO SCH ×2 (08:41→20:22)
[2022-07-14] MEDS: LORATADINE 10 MG TABLET PO SCH (08:41)
[2022-07-14] MEDS: MEGESTROL ACETATE 400 MG/10 ML UDC PO SCH ×2 (08:42→20:22)
[2022-07-14] MEDS: FERROUS SULFATE 325 MG TABLET.DR PO SCH (08:42)
[2022-07-14] MEDS: traMADol HCL HCL 50 MG TABLET (ULTRAM) PO SCH ×2 (08:42→20:22)
[2022-07-14] MEDS: VANCOMYCIN HCL 750 MG in NS 250 ML IV SCH ×2 (08:43→20:23)
[2022-07-14] MEDS: MUPIROCIN 2% TOPICAL OINTMENT 22 GM TP SCH ×2 (08:44→20:23)
[2022-07-14 09:52] LABS: ALANINE AMINOTRANSFERASE 29 U/L (12-78); ALBUMIN 2.5 g/dL (3.4-4.8); ANION GAP 9 (5-15); ASPARTATE AMINOTRANSFERASE 32 U/L (10-37); CALCIUM 8.9 mg/dL (8.4-11.0); CHLORIDE 100 mmol/L (98-107); CREATININE 0.89 mg/dL (0.55-1.30); GLUCOSE 99 mg/dL (70-99); PHOSPHORUS 3.5 mg/dL (2.7-4.5); TOTAL BILIRUBIN 0.3 mg/dL (0.0-1.0); UREA NITROGEN, BLOOD 23 mg/dL (8-21)
[2022-07-14 11:24] VITALS: BP_SYST 111
[2022-07-14] MEDS: DIPHENHYDRAMINE HCL 25 MG CAPSULE PO PRN ×2 (13:53→20:22)
[2022-07-14 15:19] VITALS: BP_SYST 120
[2022-07-14] MEDS: SOD FERRIC GLUC COMPLEX/SUC 125 MG in NS 100 ML IV SCH (16:15)
[2022-07-14] MEDS: KCL 20 mEq in 0.45% NS 1000 mL 1,000 ML IV SCH (16:15)
[2022-07-14] MEDS: ASCORBIC ACID 500 MG TABLET PO SCH (18:00)
[2022-07-14 20:00] VITALS: BP_SYST 137
[2022-07-14] MEDS: ENOXAPARIN SODIUM 40 MG/0.4 ML SYRINGE SUBCUT SCH (20:22)
[2022-07-14] MEDS: MELATONIN 3 MG TABLET PO SCH (20:23)
[2022-07-14] MEDS: FAT EMULSIONS 250 ML IV SCH (20:24)
[2022-07-14] MEDS ORDERED: TPN PERIPHERAL IV SCH ×8 (21:00)
[2022-07-14] MEDS ORDERED: SODIUM ACETATE IV SCH ×8 (21:00)
[2022-07-14] MEDS ORDERED: K PHOS IV SCH ×8 (21:00)
[2022-07-14] MEDS ORDERED: MAGNESIUM SULFATE IV SCH ×8 (21:00)
[2022-07-14] MEDS ORDERED: [UNRECOGNIZED DRUG - OTHER] IV SCH ×8 (21:00)
[2022-07-15 00:20] VITALS: BP_SYST 115
[2022-07-15 07:42] LABS: ALANINE AMINOTRANSFERASE 37 U/L (12-78); ALBUMIN 2.5 g/dL (3.4-4.8); ANION GAP 11 (5-15); CALCIUM 9.1 mg/dL (8.4-11.0); CHLORIDE 102 mmol/L (98-107); CREATININE 0.81 mg/dL (0.55-1.30); GLUCOSE 89 mg/dL (70-99); PHOSPHORUS 4.2 mg/dL (2.7-4.5); TOTAL BILIRUBIN 0.2 mg/dL (0.0-1.0); UREA NITROGEN, BLOOD 21 mg/dL (8-21)
[2022-07-15 08:00] VITALS: BP_SYST 122
[2022-07-15 08:03] LABS: ASPARTATE AMINOTRANSFERASE 60 U/L (10-37)
[2022-07-15] MEDS: VANCOMYCIN HCL 750 MG in NS 250 ML IV SCH (09:23)
[2022-07-15] MEDS: MEGESTROL ACETATE 400 MG/10 ML UDC PO SCH ×2 (09:23→21:51)
[2022-07-15] MEDS: FOLIC ACID 1 MG TABLET PO SCH ×2 (09:24→21:51)
[2022-07-15] MEDS: CHOLECALCIFEROL (VITAMIN D3) 5,000 UNIT TABLET PO SCH (09:24)
[2022-07-15] MEDS: MULTIVITAMINS TAB 1 TABLET PO SCH (09:24)
[2022-07-15] MEDS: levETIRAcetam 500 MG TABLET PO SCH ×2 (09:24→21:51)
[2022-07-15] MEDS: PANTOPRAZOLE SODIUM 40 MG TAB PO SCH (09:24)
[2022-07-15] MEDS: QUEtiapine FUMARATE 25 MG TABLET PO SCH ×2 (09:24→21:51)
[2022-07-15] MEDS: FERROUS SULFATE 325 MG TABLET.DR PO SCH (09:24)
[2022-07-15] MEDS: traMADol HCL HCL 50 MG TABLET (ULTRAM) PO SCH ×2 (09:25→10:25)
[2022-07-15] MEDS: MUPIROCIN 2% TOPICAL OINTMENT 22 GM TP SCH ×2 (09:26→21:56)
[2022-07-15] MEDS: LORATADINE 10 MG TABLET PO SCH (09:26)
[2022-07-15] MEDS: FLUCONAZOLE 100 MG TABLET (DIFLUCAN) PO SCH (09:26)
[2022-07-15 11:32] VITALS: BP_SYST 125
[2022-07-15 15:42] VITALS: BP_SYST 111
[2022-07-15] MEDS: ASCORBIC ACID 500 MG TABLET PO SCH (17:08)
[2022-07-15] MEDS: SOD FERRIC GLUC COMPLEX/SUC 125 MG in NS 100 ML IV SCH (17:09)
[2022-07-15] MEDS: KCL 20 mEq in 0.45% NS 1000 mL 1,000 ML IV SCH (17:10)
[2022-07-15 20:00] VITALS: BP_SYST 120
[2022-07-15] MEDS: FAT EMULSIONS 250 ML IV SCH (20:30)
[2022-07-15] MEDS ORDERED: SODIUM ACETATE IV SCH ×9 (21:00)
[2022-07-15] MEDS ORDERED: TPN PERIPHERAL IV SCH ×9 (21:00)
[2022-07-15] MEDS ORDERED: NA PHOS IV SCH ×9 (21:00)
[2022-07-15] MEDS ORDERED: [UNRECOGNIZED DRUG - OTHER] IV SCH ×9 (21:00)
[2022-07-15] MEDS: LINEZOLID 300 ML IV SCH (21:53)
[2022-07-15] MEDS: ENOXAPARIN SODIUM 40 MG/0.4 ML SYRINGE SUBCUT SCH (21:56)
[2022-07-15] MEDS: MELATONIN 3 MG TABLET PO SCH (22:12)
[2022-07-16] VITALS: BP_SYST 121
[2022-07-16 06:27] LABS: ALANINE AMINOTRANSFERASE 33 U/L (12-78); ALBUMIN 2.2 g/dL (3.4-4.8); ANION GAP 7 (5-15); ASPARTATE AMINOTRANSFERASE 41 U/L (10-37); CALCIUM 8.8 mg/dL (8.4-11.0); CHLORIDE 103 mmol/L (98-107); GLUCOSE 108 mg/dL (70-99); TOTAL BILIRUBIN 0.2 mg/dL (0.0-1.0); UREA NITROGEN, BLOOD 27 mg/dL (8-21)
[2022-07-16 07:40] LABS: BASOPHILS % (AUTO) 0.4 % (0.0-2.0); EOSINOPHILS # (AUTO) 0.2 K/uL (0.0-0.4); EOSINOPHILS % (AUTO) 1.6 % (0.0-4.0); HEMOGLOBIN 7.4 g/dL (14.0-18.0); LYMPHOCYTES # (AUTO) 0.5 K/uL (1.0-5.5); LYMPHOCYTES % (AUTO) 4.8 % (20.5-51.5); MEAN CORPUSCULAR HEMOGLOBIN 30 pg (27-31); MEAN CORPUSCULAR HGB CONC 34 % (32-36); MEAN CORPUSCULAR VOLUME 87 fL (79.0-98.0); MONOCYTES # (AUTO) 0.6 K/uL (0.0-1.0); MONOCYTES % (AUTO) 5.4 % (1.7-9.3); NEUTROPHILS # (AUTO) 9.4 K/uL (1.8-7.7); NEUTROPHILS % (AUTO) 87.8 % (40.0-70.0); PLATELET COUNT (AUTO) 349 K/uL (130-430); RED BLOOD CELL COUNT(AUTO) 2.51 MIL/uL (4.2-6.2); RED CELL DISTRIBUTION WIDTH 15.6 % (9.0-15.0); WHITE BLOOD COUNT (AUTO) 10.7 K/uL (4.8-10.8)
[2022-07-16 08:22] LABS: HEMATOCRIT 21.9 % (36-54)
[2022-07-16 08:43] VITALS: BP_SYST 124
[2022-07-16] MEDS: MEGESTROL ACETATE 400 MG/10 ML UDC PO SCH ×2 (08:48→20:52)
[2022-07-16] MEDS: QUEtiapine FUMARATE 25 MG TABLET PO SCH ×2 (08:48→20:52)
[2022-07-16] MEDS: PANTOPRAZOLE SODIUM 40 MG TAB PO SCH (08:48)
[2022-07-16] MEDS: LINEZOLID 300 ML IV SCH ×2 (08:48→21:00)
[2022-07-16] MEDS: CHOLECALCIFEROL (VITAMIN D3) 5,000 UNIT TABLET PO SCH (08:48)
[2022-07-16] MEDS: MULTIVITAMINS TAB 1 TABLET PO SCH (08:49)
[2022-07-16] MEDS: levETIRAcetam 500 MG TABLET PO SCH ×2 (08:49→20:52)
[2022-07-16] MEDS: FOLIC ACID 1 MG TABLET PO SCH ×2 (08:49→20:52)
[2022-07-16] MEDS: FERROUS SULFATE 325 MG TABLET.DR PO SCH (08:49)
[2022-07-16] MEDS: FLUCONAZOLE 100 MG TABLET (DIFLUCAN) PO SCH (08:49)
[2022-07-16] MEDS: LORATADINE 10 MG TABLET PO SCH (08:49)
[2022-07-16] MEDS: MUPIROCIN 2% TOPICAL OINTMENT 22 GM TP SCH ×2 (08:50→20:56)
[2022-07-16] MEDS: traMADol HCL HCL 50 MG TABLET (ULTRAM) PO SCH ×2 (10:13→20:52)
[2022-07-16 11:21] VITALS: BP_SYST 103
[2022-07-16 17:26] VITALS: BP_SYST 110
[2022-07-16] MEDS: SOD FERRIC GLUC COMPLEX/SUC 125 MG in NS 100 ML IV SCH (18:00)
[2022-07-16] MEDS: KCL 20 mEq in 0.45% NS 1000 mL 1,000 ML IV SCH (18:00)
[2022-07-16] MEDS: ASCORBIC ACID 500 MG TABLET PO SCH (18:23)
[2022-07-16 20:00] VITALS: BP_SYST 127
[2022-07-16] MEDS: MELATONIN 3 MG TABLET PO SCH (20:55)
[2022-07-16] MEDS: ENOXAPARIN SODIUM 40 MG/0.4 ML SYRINGE SUBCUT SCH (20:55)
[2022-07-16] MEDS ORDERED: TPN PERIPHERAL IV SCH ×9 (21:00)
[2022-07-16] MEDS: FAT EMULSIONS 250 ML IV SCH (21:00)
[2022-07-16] MEDS ORDERED: NA PHOS IV SCH ×9 (21:00)
[2022-07-16] MEDS ORDERED: SODIUM ACETATE IV SCH ×9 (21:00)
[2022-07-16] MEDS ORDERED: [UNRECOGNIZED DRUG - OTHER] IV SCH ×9 (21:00)
[2022-07-17] VITALS: BP_SYST 110
[2022-07-17 06:38] LABS: ALANINE AMINOTRANSFERASE 34 U/L (12-78); ALBUMIN 2.5 g/dL (3.4-4.8); ANION GAP 8 (5-15); ASPARTATE AMINOTRANSFERASE 32 U/L (10-37); CALCIUM 9.2 mg/dL (8.4-11.0); CHLORIDE 102 mmol/L (98-107); CREATININE 1.01 mg/dL (0.55-1.30); GLUCOSE 76 mg/dL (70-99); PHOSPHORUS 4.8 mg/dL (2.7-4.5); TOTAL BILIRUBIN 0.2 mg/dL (0.0-1.0); UREA NITROGEN, BLOOD 30 mg/dL (8-21)
[2022-07-17 08:00] VITALS: BP_SYST 104
[2022-07-17] MEDS: MUPIROCIN 2% TOPICAL OINTMENT 22 GM TP SCH ×2 (09:00→21:00)
[2022-07-17] MEDS: LINEZOLID 300 ML IV SCH ×2 (09:00→22:51)
[2022-07-17] MEDS: FERROUS SULFATE 325 MG TABLET.DR PO SCH (10:25)
[2022-07-17] MEDS: MEGESTROL ACETATE 400 MG/10 ML UDC PO SCH ×2 (10:25→22:50)
[2022-07-17] MEDS: LORATADINE 10 MG TABLET PO SCH (10:25)
[2022-07-17] MEDS: levETIRAcetam 500 MG TABLET PO SCH (10:25)
[2022-07-17] MEDS: MULTIVITAMINS TAB 1 TABLET PO SCH (10:25)
[2022-07-17] MEDS: CHOLECALCIFEROL (VITAMIN D3) 5,000 UNIT TABLET PO SCH (10:25)
[2022-07-17] MEDS: FOLIC ACID 1 MG TABLET PO SCH (10:25)
[2022-07-17] MEDS: QUEtiapine FUMARATE 25 MG TABLET PO SCH ×2 (10:26→22:49)
[2022-07-17] MEDS: traMADol HCL HCL 50 MG TABLET (ULTRAM) PO SCH ×2 (10:26→11:26)
[2022-07-17] MEDS: PANTOPRAZOLE SODIUM 40 MG TAB PO SCH (10:26)
[2022-07-17 11:31] VITALS: BP_SYST 103
[2022-07-17 12:01] LABS: BASOPHILS # (AUTO) 0.1 K/uL (0.0-0.2); BASOPHILS % (AUTO) 0.7 % (0.0-2.0); EOSINOPHILS # (AUTO) 0.1 K/uL (0.0-0.4); EOSINOPHILS % (AUTO) 1.1 % (0.0-4.0); HEMATOCRIT 24.2 % (36-54); HEMOGLOBIN 7.8 g/dL (14.0-18.0); LYMPHOCYTES # (AUTO) 0.7 K/uL (1.0-5.5); LYMPHOCYTES % (AUTO) 5.2 % (20.5-51.5); MEAN CORPUSCULAR HEMOGLOBIN 29 pg (27-31); MEAN CORPUSCULAR HGB CONC 32 % (32-36); MEAN CORPUSCULAR VOLUME 89 fL (79.0-98.0); MONOCYTES # (AUTO) 0.3 K/uL (0.0-1.0); MONOCYTES % (AUTO) 2.6 % (1.7-9.3); NEUTROPHILS # (AUTO) 11.4 K/uL (1.8-7.7); NEUTROPHILS % (AUTO) 90.4 % (40.0-70.0); PLATELET COUNT (AUTO) 372 K/uL (130-430); RED BLOOD CELL COUNT(AUTO) 2.72 MIL/uL (4.2-6.2); RED CELL DISTRIBUTION WIDTH 16.6 % (9.0-15.0); WHITE BLOOD COUNT (AUTO) 12.6 K/uL (4.8-10.8)
[2022-07-17 17:20] VITALS: BP_SYST 119
[2022-07-17] MEDS: SOD FERRIC GLUC COMPLEX/SUC 125 MG in NS 100 ML IV SCH (18:00)
[2022-07-17] MEDS: KCL 20 mEq in 0.45% NS 1000 mL 1,000 ML IV SCH (18:00)
[2022-07-17] MEDS: ASCORBIC ACID 500 MG TABLET PO SCH (18:13)
[2022-07-17] MEDS ORDERED: [UNRECOGNIZED DRUG - OTHER] IV SCH ×7 (21:00)
[2022-07-17] MEDS: ENOXAPARIN SODIUM 40 MG/0.4 ML SYRINGE SUBCUT SCH (21:00)
[2022-07-17] MEDS ORDERED: TPN PERIPHERAL IV SCH ×7 (21:00)
[2022-07-17] MEDS ORDERED: MAGNESIUM SULFATE IV SCH ×7 (21:00)
[2022-07-17] MEDS ORDERED: SODIUM ACETATE IV SCH ×7 (21:00)
[2022-07-17] MEDS ORDERED: MVI IV SCH ×7 (21:00)
[2022-07-17] MEDS: FAT EMULSIONS 250 ML IV SCH (23:21)
[2022-07-17] MEDS: MELATONIN 3 MG TABLET PO SCH (23:35)
[2022-07-18] VITALS (9 sets, daily range): BP systolic 111–149
[2022-07-18] MEDS: FOLIC ACID 1 MG TABLET PO SCH ×3 (00:13→20:44)
[2022-07-18] MEDS: levETIRAcetam 500 MG TABLET PO SCH ×3 (00:14→20:44)
[2022-07-18] MEDS: MULTIVITAMINS TAB 1 TABLET PO SCH (08:55)
[2022-07-18] MEDS: PANTOPRAZOLE SODIUM 40 MG TAB PO SCH (08:55)
[2022-07-18] MEDS: CHOLECALCIFEROL (VITAMIN D3) 5,000 UNIT TABLET PO SCH (08:55)
[2022-07-18] MEDS: QUEtiapine FUMARATE 25 MG TABLET PO SCH ×2 (08:55→21:00)
[2022-07-18] MEDS: LORATADINE 10 MG TABLET PO SCH (08:55)
[2022-07-18] MEDS: traMADol HCL HCL 50 MG TABLET (ULTRAM) PO SCH ×2 (08:55→20:44)
[2022-07-18] MEDS: MEGESTROL ACETATE 400 MG/10 ML UDC PO SCH ×2 (08:55→20:43)
[2022-07-18] MEDS: FERROUS SULFATE 325 MG TABLET.DR PO SCH (08:55)
[2022-07-18] MEDS: LINEZOLID 300 ML IV SCH ×2 (08:57→23:10)
[2022-07-18] MEDS: MUPIROCIN 2% TOPICAL OINTMENT 22 GM TP SCH ×2 (09:00→21:14)
[2022-07-18 09:50] LABS: ALANINE AMINOTRANSFERASE 31 U/L (12-78); ALBUMIN 2.6 g/dL (3.4-4.8); ANION GAP 7 (5-15); ASPARTATE AMINOTRANSFERASE 28 U/L (10-37); CALCIUM 9.1 mg/dL (8.4-11.0); CHLORIDE 103 mmol/L (98-107); CREATININE 0.96 mg/dL (0.55-1.30); GLUCOSE 66 mg/dL (70-99); PHOSPHORUS 5.2 mg/dL (2.7-4.5); TOTAL BILIRUBIN 0.3 mg/dL (0.0-1.0); UREA NITROGEN, BLOOD 32 mg/dL (8-21)
[2022-07-18] MEDS: ASCORBIC ACID 500 MG TABLET PO SCH (19:03)
[2022-07-18] MEDS: ENOXAPARIN SODIUM 40 MG/0.4 ML SYRINGE SUBCUT SCH (21:00)
[2022-07-18] MEDS: SODIUM ACETATE IV SCH ×7 (21:00)
[2022-07-18] MEDS: [UNRECOGNIZED DRUG - OTHER] IV SCH ×7 (21:00)
[2022-07-18] MEDS: TPN PERIPHERAL IV SCH ×7 (21:00)
[2022-07-18] MEDS: FAT EMULSIONS 250 ML IV SCH (21:00)
[2022-07-18] MEDS: MAGNESIUM SULFATE IV SCH ×7 (21:00)
[2022-07-18] MEDS: MVI IV SCH ×7 (21:00)
[2022-07-18] MEDS: MELATONIN 3 MG TABLET PO SCH (21:01)
[2022-07-18] MEDS: DIPHENHYDRAMINE HCL 25 MG CAPSULE PO PRN ×2 (23:11→23:24)
[2022-07-18] MEDS: HYDROmorphone 1 MG/ML INJ. CARTRIDGE IVP PRN (23:21)
[2022-07-19] MEDS: SOD FERRIC GLUC COMPLEX/SUC 125 MG in NS 100 ML IV SCH (01:12)
[2022-07-19] MEDS: KCL 20 mEq in 0.45% NS 1000 mL 1,000 ML IV SCH (01:13)
[2022-07-19 02:39] VITALS: BP_SYST 114
[2022-07-19] MEDS: MAGNESIUM SULFATE IV SCH ×7 (03:49)
[2022-07-19] MEDS: MVI IV SCH ×7 (03:49)
[2022-07-19] MEDS: [UNRECOGNIZED DRUG - OTHER] IV SCH ×7 (03:49)
[2022-07-19] MEDS: SODIUM ACETATE IV SCH ×7 (03:49)
[2022-07-19] MEDS: TPN PERIPHERAL IV SCH ×7 (03:49)
[2022-07-19] MEDS: FAT EMULSIONS 250 ML IV SCH (03:53)
[2022-07-19] MEDS: DIPHENHYDRAMINE HCL 25 MG CAPSULE PO PRN (04:09)
[2022-07-19 08:00] VITALS: BP_SYST 137
[2022-07-19] MEDS: LINEZOLID 300 ML IV SCH (08:06)
[2022-07-19] MEDS: levETIRAcetam 500 MG TABLET PO SCH ×2 (08:12→20:35)
[2022-07-19] MEDS: PANTOPRAZOLE SODIUM 40 MG TAB PO SCH (08:12)
[2022-07-19] MEDS: CHOLECALCIFEROL (VITAMIN D3) 5,000 UNIT TABLET PO SCH (08:12)
[2022-07-19] MEDS: FOLIC ACID 1 MG TABLET PO SCH ×2 (08:12→20:36)
[2022-07-19] MEDS: MULTIVITAMINS TAB 1 TABLET PO SCH (08:12)
[2022-07-19] MEDS: traMADol HCL HCL 50 MG TABLET (ULTRAM) PO SCH ×2 (08:12→20:36)
[2022-07-19] MEDS: QUEtiapine FUMARATE 25 MG TABLET PO SCH ×2 (08:12→20:35)
[2022-07-19] MEDS: LORATADINE 10 MG TABLET PO SCH (08:12)
[2022-07-19] MEDS: FERROUS SULFATE 325 MG TABLET.DR PO SCH (08:12)
[2022-07-19] MEDS: MEGESTROL ACETATE 400 MG/10 ML UDC PO SCH ×2 (08:13→20:35)
[2022-07-19 08:16] LABS: HEMATOCRIT 32.1 % (36-54); HEMOGLOBIN 10.5 g/dL (14.0-18.0); MEAN CORPUSCULAR HEMOGLOBIN 29 pg (27-31); MEAN CORPUSCULAR HGB CONC 33 % (32-36); MEAN CORPUSCULAR VOLUME 88 fL (79.0-98.0); PLATELET COUNT (AUTO) 312 K/uL (130-430); RED BLOOD CELL COUNT(AUTO) 3.65 MIL/uL (4.2-6.2); RED CELL DISTRIBUTION WIDTH 16.2 % (9.0-15.0); WHITE BLOOD COUNT (AUTO) 11.3 K/uL (4.8-10.8)
[2022-07-19 08:22] LABS: ALANINE AMINOTRANSFERASE 29 U/L (12-78); ALBUMIN 2.3 g/dL (3.4-4.8); ANION GAP 10 (5-15); ASPARTATE AMINOTRANSFERASE 26 U/L (10-37); CALCIUM 9.3 mg/dL (8.4-11.0); CHLORIDE 103 mmol/L (98-107); CREATININE 0.84 mg/dL (0.55-1.30); GLUCOSE 116 mg/dL (70-99); PHOSPHORUS 4.5 mg/dL (2.7-4.5); TOTAL BILIRUBIN 0.2 mg/dL (0.0-1.0); UREA NITROGEN, BLOOD 33 mg/dL (8-21)
[2022-07-19] MEDS: MUPIROCIN 2% TOPICAL OINTMENT 22 GM TP SCH ×2 (09:00→20:37)
[2022-07-19 10:32] LABS: BAND % (MANUAL) 17 % (0-6); BASOPHILS % (MANUAL) 0 % (0-2); EOSINOPHILS % (MANUAL) 1 % (0-7); LYMPHOCYTES % (MANUAL) 3 % (20-46); MONOCYTES % (MANUAL) 2 % (0-11)
[2022-07-19 12:00] VITALS: BP_SYST 143
[2022-07-19 16:00] VITALS: BP_SYST 135
[2022-07-19] MEDS: ASCORBIC ACID 500 MG TABLET PO SCH (17:38)
[2022-07-19 20:08] VITALS: BP_SYST 101
[2022-07-19] MEDS: ENOXAPARIN SODIUM 40 MG/0.4 ML SYRINGE SUBCUT SCH (20:35)
[2022-07-19] MEDS: MELATONIN 3 MG TABLET PO SCH (20:35)
[2022-07-19] MEDS: LINEZOLID 600 MG TABLET PO SCH (20:36)
[2022-07-19] MEDS ORDERED: [UNRECOGNIZED DRUG - OTHER] IV SCH ×7 (21:00)
[2022-07-19] MEDS ORDERED: TPN PERIPHERAL IV SCH ×7 (21:00)
[2022-07-19] MEDS ORDERED: SODIUM ACETATE IV SCH ×7 (21:00)
[2022-07-19] MEDS ORDERED: MVI IV SCH ×7 (21:00)
[2022-07-19] MEDS ORDERED: MAGNESIUM SULFATE IV SCH ×7 (21:00)
[2022-07-20] VITALS: BP_SYST 94
[2022-07-20] MEDS: DIPHENHYDRAMINE HCL 25 MG CAPSULE PO PRN (03:38)
[2022-07-20 06:56] LABS: ALANINE AMINOTRANSFERASE 28 U/L (12-78); ALBUMIN 2.3 g/dL (3.4-4.8); ANION GAP 14 (5-15); ASPARTATE AMINOTRANSFERASE 24 U/L (10-37); CALCIUM 9.5 mg/dL (8.4-11.0); CHLORIDE 100 mmol/L (98-107); CREATININE 1.13 mg/dL (0.55-1.30); GLUCOSE 77 mg/dL (70-99); TOTAL BILIRUBIN 0.2 mg/dL (0.0-1.0); UREA NITROGEN, BLOOD 43 mg/dL (8-21)
[2022-07-20 07:42] LABS: EOSINOPHILS % (AUTO) 0.1 % (0.0-4.0); HEMATOCRIT 36.9 % (36-54); HEMOGLOBIN 12.1 g/dL (14.0-18.0); LYMPHOCYTES # (AUTO) 0.2 K/uL (1.0-5.5); LYMPHOCYTES % (AUTO) 3.4 % (20.5-51.5); MEAN CORPUSCULAR HEMOGLOBIN 29 pg (27-31); MEAN CORPUSCULAR HGB CONC 33 % (32-36); MEAN CORPUSCULAR VOLUME 89 fL (79.0-98.0); MONOCYTES # (AUTO) 0.2 K/uL (0.0-1.0); MONOCYTES % (AUTO) 2.4 % (1.7-9.3); NEUTROPHILS # (AUTO) 6.6 K/uL (1.8-7.7); NEUTROPHILS % (AUTO) 94.1 % (40.0-70.0); PLATELET COUNT (AUTO) 272 K/uL (130-430); RED BLOOD CELL COUNT(AUTO) 4.17 MIL/uL (4.2-6.2); RED CELL DISTRIBUTION WIDTH 16.4 % (9.0-15.0); WHITE BLOOD COUNT (AUTO) 7.1 K/uL (4.8-10.8)
[2022-07-20 08:35] VITALS: BP_SYST 82
[2022-07-20] MEDS: levETIRAcetam 500 MG TABLET PO SCH ×2 (10:02→22:38)
[2022-07-20] MEDS: CHOLECALCIFEROL (VITAMIN D3) 5,000 UNIT TABLET PO SCH (10:02)
[2022-07-20] MEDS: LINEZOLID 600 MG TABLET PO SCH ×2 (10:02→22:38)
[2022-07-20] MEDS: FERROUS SULFATE 325 MG TABLET.DR PO SCH (10:02)
[2022-07-20] MEDS: MEGESTROL ACETATE 400 MG/10 ML UDC PO SCH ×2 (10:02→22:38)
[2022-07-20] MEDS: FOLIC ACID 1 MG TABLET PO SCH ×2 (10:03→22:38)
[2022-07-20] MEDS: MULTIVITAMINS TAB 1 TABLET PO SCH (10:03)
[2022-07-20] MEDS: LORATADINE 10 MG TABLET PO SCH (10:03)
[2022-07-20] MEDS: MUPIROCIN 2% TOPICAL OINTMENT 22 GM TP SCH ×2 (10:03→22:52)
[2022-07-20] MEDS: QUEtiapine FUMARATE 25 MG TABLET PO SCH ×2 (10:09→22:38)
[2022-07-20] MEDS: PANTOPRAZOLE SODIUM 40 MG TAB PO SCH (10:09)
[2022-07-20] MEDS: traMADol HCL HCL 50 MG TABLET (ULTRAM) PO SCH ×2 (10:10→22:51)
[2022-07-20] MEDS ORDERED: NS 500 ML IV ONE (11:15)
[2022-07-20 11:20] VITALS: BP_SYST 90
[2022-07-20] MEDS: D5NS 1,000 ML IV SCH (14:30)
[2022-07-20 17:16] VITALS: BP_SYST 101
[2022-07-20] MEDS: ASCORBIC ACID 500 MG TABLET PO SCH (18:00)
[2022-07-20 20:13] VITALS: BP_SYST 128
[2022-07-20] MEDS: MELATONIN 3 MG TABLET PO SCH (22:40)
[2022-07-20] MEDS: ENOXAPARIN SODIUM 40 MG/0.4 ML SYRINGE SUBCUT SCH (22:40)
[2022-07-21] MEDS: D5NS 1,000 ML IV SCH ×3 (00:30→21:39)
[2022-07-21 06:41] LABS: BASOPHILS % (AUTO) 0.1 % (0.0-2.0); EOSINOPHILS % (AUTO) 0.1 % (0.0-4.0); HEMATOCRIT 30.7 % (36-54); HEMOGLOBIN 10.3 g/dL (14.0-18.0); LYMPHOCYTES # (AUTO) 0.2 K/uL (1.0-5.5); LYMPHOCYTES % (AUTO) 2.8 % (20.5-51.5); MEAN CORPUSCULAR HEMOGLOBIN 29 pg (27-31); MEAN CORPUSCULAR HGB CONC 34 % (32-36); MEAN CORPUSCULAR VOLUME 86 fL (79.0-98.0); MONOCYTES # (AUTO) 0.2 K/uL (0.0-1.0); MONOCYTES % (AUTO) 4.2 % (1.7-9.3); NEUTROPHILS # (AUTO) 5.3 K/uL (1.8-7.7); NEUTROPHILS % (AUTO) 92.8 % (40.0-70.0); PLATELET COUNT (AUTO) 244 K/uL (130-430); RED BLOOD CELL COUNT(AUTO) 3.56 MIL/uL (4.2-6.2); RED CELL DISTRIBUTION WIDTH 17.3 % (9.0-15.0); WHITE BLOOD COUNT (AUTO) 5.7 K/uL (4.8-10.8)
[2022-07-21 07:56] LABS: ALANINE AMINOTRANSFERASE 24 U/L (12-78); ALBUMIN 2.2 g/dL (3.4-4.8); ANION GAP 14 (5-15); ASPARTATE AMINOTRANSFERASE 19 U/L (10-37); CALCIUM 9.5 mg/dL (8.4-11.0); CHLORIDE 101 mmol/L (98-107); CREATININE 1.08 mg/dL (0.55-1.30); GLUCOSE 140 mg/dL (70-99); TOTAL BILIRUBIN 0.2 mg/dL (0.0-1.0); UREA NITROGEN, BLOOD 48 mg/dL (8-21)
[2022-07-21] MEDS ORDERED: CEFAZOLIN 1 GM IVPB PREMIX 50 ML IV ONE ×3 (08:30→10:00)
[2022-07-21 08:39] VITALS: BP_SYST 110
[2022-07-21 08:57] LABS: INR 1.1 (0.80-1.20); PROTHROMBIN TIME 11.5 SECS (9.5-12.5)
[2022-07-21] MEDS ORDERED: SIMETHICONE 40 MG/0.6 ML ML ONE (09:28)
[2022-07-21] MEDS: QUEtiapine FUMARATE 25 MG TABLET PO SCH ×2 (10:49→21:53)
[2022-07-21] MEDS: traMADol HCL HCL 50 MG TABLET (ULTRAM) PO SCH ×2 (10:49→21:53)
[2022-07-21] MEDS: MEGESTROL ACETATE 400 MG/10 ML UDC PO SCH ×2 (10:50→21:52)
[2022-07-21] MEDS: levETIRAcetam 500 MG TABLET PO SCH ×2 (10:50→21:53)
[2022-07-21] MEDS: FOLIC ACID 1 MG TABLET PO SCH ×2 (10:50→21:53)
[2022-07-21] MEDS: CHOLECALCIFEROL (VITAMIN D3) 5,000 UNIT TABLET PO SCH (10:50)
[2022-07-21] MEDS: MULTIVITAMINS TAB 1 TABLET PO SCH (10:51)
[2022-07-21] MEDS: LORATADINE 10 MG TABLET PO SCH (10:51)
[2022-07-21] MEDS: PANTOPRAZOLE SODIUM 40 MG TAB PO SCH (10:51)
[2022-07-21] MEDS: FERROUS SULFATE 325 MG TABLET.DR PO SCH (10:51)
[2022-07-21] MEDS: MUPIROCIN 2% TOPICAL OINTMENT 22 GM TP SCH ×2 (10:52→21:54)
[2022-07-21 11:30] VITALS: BP_SYST 113
[2022-07-21 16:35] VITALS: BP_SYST 117
[2022-07-21] MEDS: ASCORBIC ACID 500 MG TABLET PO SCH (18:29)
[2022-07-21 19:55] VITALS: BP_SYST 108
[2022-07-21] MEDS: ENOXAPARIN SODIUM 40 MG/0.4 ML SYRINGE SUBCUT SCH (21:53)
[2022-07-21] MEDS: MELATONIN 3 MG TABLET PO SCH (21:54)
[2022-07-22 00:22] VITALS: BP_SYST 124
[2022-07-22] MEDS: D5NS 1,000 ML IV SCH ×2 (06:01→18:26)
[2022-07-22 06:49] LABS: EOSINOPHILS % (AUTO) 0.1 % (0.0-4.0); HEMATOCRIT 32.3 % (36-54); HEMOGLOBIN 10.7 g/dL (14.0-18.0); LYMPHOCYTES # (AUTO) 0.1 K/uL (1.0-5.5); MEAN CORPUSCULAR HEMOGLOBIN 29 pg (27-31); MEAN CORPUSCULAR HGB CONC 33 % (32-36); MEAN CORPUSCULAR VOLUME 87 fL (79.0-98.0); MONOCYTES # (AUTO) 0.1 K/uL (0.0-1.0); MONOCYTES % (AUTO) 1.2 % (1.7-9.3); NEUTROPHILS # (AUTO) 9.5 K/uL (1.8-7.7); NEUTROPHILS % (AUTO) 97.7 % (40.0-70.0); PLATELET COUNT (AUTO) 215 K/uL (130-430); RED CELL DISTRIBUTION WIDTH 16.8 % (9.0-15.0); WHITE BLOOD COUNT (AUTO) 9.7 K/uL (4.8-10.8)
[2022-07-22 07:14] LABS: ANION GAP 12 (5-15); CALCIUM 9.1 mg/dL (8.4-11.0); CHLORIDE 104 mmol/L (98-107); CREATININE 1.15 mg/dL (0.55-1.30); GLUCOSE 109 mg/dL (70-99); UREA NITROGEN, BLOOD 45 mg/dL (8-21)
[2022-07-22 08:32] VITALS: BP_SYST 130
[2022-07-22] MEDS: MEGESTROL ACETATE 400 MG/10 ML UDC PO SCH ×2 (09:46→22:12)
[2022-07-22] MEDS: CHOLECALCIFEROL (VITAMIN D3) 5,000 UNIT TABLET PO SCH (09:47)
[2022-07-22] MEDS: traMADol HCL HCL 50 MG TABLET (ULTRAM) PO SCH ×2 (09:47→22:11)
[2022-07-22] MEDS: QUEtiapine FUMARATE 25 MG TABLET PO SCH ×2 (09:47→22:11)
[2022-07-22] MEDS: FOLIC ACID 1 MG TABLET PO SCH ×2 (09:47→22:11)
[2022-07-22] MEDS: levETIRAcetam 500 MG TABLET PO SCH ×2 (09:48→22:12)
[2022-07-22] MEDS: PANTOPRAZOLE SODIUM 40 MG TAB PO SCH (09:48)
[2022-07-22] MEDS: FERROUS SULFATE 325 MG TABLET.DR PO SCH (09:48)
[2022-07-22] MEDS: MULTIVITAMINS TAB 1 TABLET PO SCH (09:48)
[2022-07-22] MEDS: LORATADINE 10 MG TABLET PO SCH (09:48)
[2022-07-22] MEDS: MUPIROCIN 2% TOPICAL OINTMENT 22 GM TP SCH ×2 (09:49→22:13)
[2022-07-22 11:27] VITALS: BP_SYST 130
[2022-07-22 15:49] VITALS: BP_SYST 133
[2022-07-22] MEDS ORDERED: LevALBUTEROL HCL 1.25 MG/0.5 ML *CONC.* VIAL.NEB (XOPENEX CONC.) INH PRN (18:00)
[2022-07-22] MEDS: ASCORBIC ACID 500 MG TABLET PO SCH (18:26)
[2022-07-22] MEDS: LevALBUTEROL HCL 1.25 MG/0.5 ML *CONC.* VIAL.NEB (XOPENEX CONC.) INH SCH (19:59)
[2022-07-22 20:00] VITALS: BP_SYST 139
[2022-07-22] MEDS: PIPERACILLIN/TAZO 3.375/DEX-IS 50 ML IV SCH (20:26)
[2022-07-22] MEDS: MELATONIN 3 MG TABLET PO SCH (22:11)
[2022-07-22] MEDS: ENOXAPARIN SODIUM 40 MG/0.4 ML SYRINGE SUBCUT SCH (22:12)
[2022-07-23] VITALS (18 sets, daily range): BP systolic 80–138
[2022-07-23] MEDS: LevALBUTEROL HCL 1.25 MG/0.5 ML *CONC.* VIAL.NEB (XOPENEX CONC.) INH SCH ×4 (01:08→20:19)
[2022-07-23] MEDS: PIPERACILLIN/TAZO 3.375/DEX-IS 50 ML IV SCH ×4 (03:10→20:00)
[2022-07-23] MEDS: D5NS 1,000 ML IV SCH ×2 (03:11→12:30)
[2022-07-23 06:30] LABS: BASOPHILS % (AUTO) 0.1 % (0.0-2.0); EOSINOPHILS % (AUTO) 0.1 % (0.0-4.0); HEMATOCRIT 35.7 % (36-54); HEMOGLOBIN 11.5 g/dL (14.0-18.0); LYMPHOCYTES # (AUTO) 0.1 K/uL (1.0-5.5); LYMPHOCYTES % (AUTO) 0.8 % (20.5-51.5); MEAN CORPUSCULAR HEMOGLOBIN 29 pg (27-31); MEAN CORPUSCULAR HGB CONC 32 % (32-36); MEAN CORPUSCULAR VOLUME 89 fL (79.0-98.0); MONOCYTES # (AUTO) 0.2 K/uL (0.0-1.0); MONOCYTES % (AUTO) 1.9 % (1.7-9.3); NEUTROPHILS # (AUTO) 9.2 K/uL (1.8-7.7); NEUTROPHILS % (AUTO) 97.1 % (40.0-70.0); PLATELET COUNT (AUTO) 188 K/uL (130-430); RED BLOOD CELL COUNT(AUTO) 4.01 MIL/uL (4.2-6.2); RED CELL DISTRIBUTION WIDTH 18.1 % (9.0-15.0); WHITE BLOOD COUNT (AUTO) 9.5 K/uL (4.8-10.8)
[2022-07-23 07:06] LABS: ANION GAP 13 (5-15); CALCIUM 9.1 mg/dL (8.4-11.0); CHLORIDE 109 mmol/L (98-107); CREATININE 1.01 mg/dL (0.55-1.30); GLUCOSE 159 mg/dL (70-99); UREA NITROGEN, BLOOD 39 mg/dL (8-21)
[2022-07-23] MEDS: PANTOPRAZOLE SODIUM 40 MG TAB PO SCH (08:37)
[2022-07-23] MEDS: QUEtiapine FUMARATE 25 MG TABLET PO SCH (08:37)
[2022-07-23] MEDS: CHOLECALCIFEROL (VITAMIN D3) 5,000 UNIT TABLET PO SCH (08:37)
[2022-07-23] MEDS: levETIRAcetam 500 MG TABLET PO SCH (08:37)
[2022-07-23] MEDS: FERROUS SULFATE 325 MG TABLET.DR PO SCH (08:37)
[2022-07-23] MEDS: MULTIVITAMINS TAB 1 TABLET PO SCH (08:37)
[2022-07-23] MEDS: FOLIC ACID 1 MG TABLET PO SCH ×2 (08:37→21:00)
[2022-07-23] MEDS: LORATADINE 10 MG TABLET PO SCH (08:37)
[2022-07-23] MEDS: traMADol HCL HCL 50 MG TABLET (ULTRAM) PO SCH (08:38)
[2022-07-23] MEDS: MEGESTROL ACETATE 400 MG/10 ML UDC PO SCH (08:38)
[2022-07-23] MEDS ORDERED: NACL 0.9% 1,000 ML IV SCH (11:00)
[2022-07-23] MEDS ORDERED: NS 500 ML IV ONE ×2 (11:00→20:00)
[2022-07-23] MEDS ORDERED: NOREPINEPHRINE BITARTRATE 4 MG in NS 246 ML IV PRN (11:00)
[2022-07-23] MEDS ORDERED: SODIUM BICARBONATE 8.4% JECT 50 MEQ/50 ML SYRINGE IVP ONE (12:45)
[2022-07-23] MEDS ORDERED: SODIUM BICARBONATE 8.4% JECT 50 MEQ/50 ML SYRINGE ONE (12:52)
[2022-07-23] MEDS: KCL 20 mEq in D5NS 1000 mL 1,000 ML IV SCH (13:00)
[2022-07-23] MEDS: PROPOFOL DRIP 100 ML IV PRN (14:12)
[2022-07-23 17:46] LABS: ANION GAP 12 (5-15); CALCIUM 9.4 mg/dL (8.4-11.0); CHLORIDE 112 mmol/L (98-107); CREATININE 1.36 mg/dL (0.55-1.30); GLUCOSE 105 mg/dL (70-99); UREA NITROGEN, BLOOD 45 mg/dL (8-21)
[2022-07-23] MEDS: ASCORBIC ACID 500 MG TABLET PO SCH (17:56)
[2022-07-23] MEDS ORDERED: VANCOMYCIN HCL 1,000 MG in NS 250 ML IV ONE (18:00)
[2022-07-23] MEDS ORDERED: POTASSIUM CHLORIDE 40 MEQ in D5W 250 ML IV ONE (21:00)
[2022-07-23] MEDS: ENOXAPARIN SODIUM 40 MG/0.4 ML SYRINGE SUBCUT SCH (22:09)
[2022-07-23] MEDS: PANTOPRAZOLE SODIUM 40 MG/VIAL (PROTONIX) IVP SCH (22:09)
[2022-07-23] MEDS: levETIRAcetam 500 MG in NS 100 ML IV SCH (22:16)
[2022-07-24] VITALS (30 sets, daily range): BP systolic 89–137
[2022-07-24] MEDS: LevALBUTEROL HCL 1.25 MG/0.5 ML *CONC.* VIAL.NEB (XOPENEX CONC.) INH SCH ×4 (01:40→19:36)
[2022-07-24] MEDS: PIPERACILLIN/TAZO 3.375/DEX-IS 50 ML IV SCH ×4 (02:00→20:58)
[2022-07-24 06:45] LABS: ANION GAP 10 (5-15); CALCIUM 8.5 mg/dL (8.4-11.0); CHLORIDE 115 mmol/L (98-107); CREATININE 1.55 mg/dL (0.55-1.30); GLUCOSE 147 mg/dL (70-99); UREA NITROGEN, BLOOD 48 mg/dL (8-21)
[2022-07-24 07:05] LABS: ALANINE AMINOTRANSFERASE 30 U/L (12-78); ALBUMIN 1.3 g/dL (3.4-4.8); ASPARTATE AMINOTRANSFERASE 48 U/L (10-37); TOTAL BILIRUBIN 0.4 mg/dL (0.0-1.0)
[2022-07-24 07:40] LABS: HEMATOCRIT 32.2 % (36-54); HEMOGLOBIN 10.4 g/dL (14.0-18.0); LYMPHOCYTES # (AUTO) 0.1 K/uL (1.0-5.5); LYMPHOCYTES % (AUTO) 1.3 % (20.5-51.5); MEAN CORPUSCULAR HEMOGLOBIN 28 pg (27-31); MEAN CORPUSCULAR HGB CONC 32 % (32-36); MEAN CORPUSCULAR VOLUME 88 fL (79.0-98.0); MONOCYTES # (AUTO) 0.3 K/uL (0.0-1.0); MONOCYTES % (AUTO) 3.1 % (1.7-9.3); NEUTROPHILS # (AUTO) 8.7 K/uL (1.8-7.7); NEUTROPHILS % (AUTO) 95.6 % (40.0-70.0); PLATELET COUNT (AUTO) 148 K/uL (130-430); RED BLOOD CELL COUNT(AUTO) 3.66 MIL/uL (4.2-6.2); RED CELL DISTRIBUTION WIDTH 17.6 % (9.0-15.0); WHITE BLOOD COUNT (AUTO) 9.1 K/uL (4.8-10.8)
[2022-07-24] MEDS ORDERED: NS 500 ML IV ONE (07:45)
[2022-07-24] MEDS: CHOLECALCIFEROL (VITAMIN D3) 5,000 UNIT TABLET PO SCH (08:29)
[2022-07-24] MEDS: FOLIC ACID 1 MG TABLET PO SCH ×2 (08:29→21:02)
[2022-07-24] MEDS: FERROUS SULFATE 325 MG TABLET.DR PO SCH (08:29)
[2022-07-24] MEDS: PANTOPRAZOLE SODIUM 40 MG/VIAL (PROTONIX) IVP SCH ×2 (08:30→20:59)
[2022-07-24] MEDS: PROPOFOL DRIP 100 ML IV PRN ×2 (08:41→21:12)
[2022-07-24] MEDS: levETIRAcetam 500 MG in NS 100 ML IV SCH ×2 (08:42→21:01)
[2022-07-24] MEDS ORDERED: CALCIUM CARBONATE 500 MG/ TAB.CHEW PO PRN (09:51)
[2022-07-24] MEDS: ALBUMIN HUMAN 25% 50 ML IV SCH ×3 (10:33→21:00)
[2022-07-24] MEDS: ASCORBIC ACID 500 MG TABLET PO SCH (18:03)
[2022-07-24] MEDS ORDERED: VANCOMYCIN HCL 750 MG in NS 250 ML IV SCH (19:00)
[2022-07-24] MEDS: KCL 20 mEq in D5NS 1000 mL 1,000 ML IV SCH (21:01)
[2022-07-24] MEDS: ENOXAPARIN SODIUM 40 MG/0.4 ML SYRINGE SUBCUT SCH (21:02)
[2022-07-25] VITALS (29 sets, daily range): BP systolic 116–162
[2022-07-25] MEDS: LevALBUTEROL HCL 1.25 MG/0.5 ML *CONC.* VIAL.NEB (XOPENEX CONC.) INH SCH ×4 (01:00→20:30)
[2022-07-25] MEDS: PIPERACILLIN/TAZO 3.375/DEX-IS 50 ML IV SCH ×4 (01:19→20:45)
[2022-07-25 06:23] LABS: ALANINE AMINOTRANSFERASE 23 U/L (12-78); ALBUMIN 1.7 g/dL (3.4-4.8); ASPARTATE AMINOTRANSFERASE 28 U/L (10-37); CALCIUM 8.3 mg/dL (8.4-11.0); CREATININE 1.17 mg/dL (0.55-1.30); GLUCOSE 134 mg/dL (70-99); TOTAL BILIRUBIN 0.4 mg/dL (0.0-1.0); UREA NITROGEN, BLOOD 50 mg/dL (8-21)
[2022-07-25 06:32] LABS: ANION GAP 10 (5-15)
[2022-07-25 06:57] LABS: CHLORIDE 121 mmol/L (98-107)
[2022-07-25] MEDS ORDERED: POTASSIUM CHLORIDE 20 MEQ TAB.PRT.SR PO ONE (07:15)
[2022-07-25] MEDS ORDERED: KCL 40 mEq in 100 mL (PREMIX) 100 ML IV ONE (07:30)
[2022-07-25 07:49] LABS: BASOPHILS % (AUTO) 0.1 % (0.0-2.0); EOSINOPHILS % (AUTO) 0.3 % (0.0-4.0); HEMOGLOBIN 8.2 g/dL (14.0-18.0); LYMPHOCYTES # (AUTO) 0.2 K/uL (1.0-5.5); LYMPHOCYTES % (AUTO) 2.9 % (20.5-51.5); MEAN CORPUSCULAR HEMOGLOBIN 29 pg (27-31); MEAN CORPUSCULAR HGB CONC 33 % (32-36); MEAN CORPUSCULAR VOLUME 88 fL (79.0-98.0); MONOCYTES # (AUTO) 0.4 K/uL (0.0-1.0); MONOCYTES % (AUTO) 4.6 % (1.7-9.3); NEUTROPHILS # (AUTO) 7.2 K/uL (1.8-7.7); NEUTROPHILS % (AUTO) 92.1 % (40.0-70.0); PLATELET COUNT (AUTO) 114 K/uL (130-430); RED BLOOD CELL COUNT(AUTO) 2.83 MIL/uL (4.2-6.2); RED CELL DISTRIBUTION WIDTH 17.6 % (9.0-15.0); WHITE BLOOD COUNT (AUTO) 7.8 K/uL (4.8-10.8)
[2022-07-25] MEDS: CHOLECALCIFEROL (VITAMIN D3) 5,000 UNIT TABLET PO SCH (09:16)
[2022-07-25] MEDS: FOLIC ACID 1 MG TABLET PO SCH ×2 (09:16→21:32)
[2022-07-25] MEDS: PANTOPRAZOLE SODIUM 40 MG/VIAL (PROTONIX) IVP SCH ×2 (09:16→21:32)
[2022-07-25] MEDS: FERROUS SULFATE 325 MG TABLET.DR PO SCH (09:16)
[2022-07-25] MEDS: levETIRAcetam 500 MG in NS 100 ML IV SCH ×2 (09:18→21:11)
[2022-07-25] MEDS: PROPOFOL DRIP 100 ML IV PRN (09:56)
[2022-07-25] MEDS: KCL 20 mEq in D5NS 1000 mL 1,000 ML IV SCH (12:43)
[2022-07-25] MEDS: ASCORBIC ACID 500 MG TABLET PO SCH (17:11)
[2022-07-25] MEDS ORDERED: *TPN PER PHARMACY XX PRN (18:00)
[2022-07-25] MEDS: ENOXAPARIN SODIUM 40 MG/0.4 ML SYRINGE SUBCUT SCH (21:00)
[2022-07-26] VITALS (32 sets, daily range): BP systolic 121–154
[2022-07-26] MEDS: PROPOFOL DRIP 100 ML IV PRN ×2 (00:05→17:40)
[2022-07-26] MEDS: LevALBUTEROL HCL 1.25 MG/0.5 ML *CONC.* VIAL.NEB (XOPENEX CONC.) INH SCH ×3 (01:39→12:04)
[2022-07-26] MEDS: PIPERACILLIN/TAZO 3.375/DEX-IS 50 ML IV SCH ×4 (02:07→20:49)
[2022-07-26] MEDS: KCL 20 mEq in D5NS 1000 mL 1,000 ML IV SCH (05:12)
[2022-07-26 06:26] LABS: BASOPHILS % (AUTO) 0.1 % (0.0-2.0); EOSINOPHILS # (AUTO) 0.1 K/uL (0.0-0.4); EOSINOPHILS % (AUTO) 0.8 % (0.0-4.0); HEMATOCRIT 28.7 % (36-54); HEMOGLOBIN 9.4 g/dL (14.0-18.0); LYMPHOCYTES # (AUTO) 0.3 K/uL (1.0-5.5); LYMPHOCYTES % (AUTO) 4.6 % (20.5-51.5); MEAN CORPUSCULAR HEMOGLOBIN 29 pg (27-31); MEAN CORPUSCULAR HGB CONC 33 % (32-36); MEAN CORPUSCULAR VOLUME 87 fL (79.0-98.0); MONOCYTES # (AUTO) 0.2 K/uL (0.0-1.0); MONOCYTES % (AUTO) 3.7 % (1.7-9.3); NEUTROPHILS # (AUTO) 5.6 K/uL (1.8-7.7); NEUTROPHILS % (AUTO) 90.8 % (40.0-70.0); PLATELET COUNT (AUTO) 99 K/uL (130-430); RED BLOOD CELL COUNT(AUTO) 3.28 MIL/uL (4.2-6.2); RED CELL DISTRIBUTION WIDTH 17.9 % (9.0-15.0); WHITE BLOOD COUNT (AUTO) 6.2 K/uL (4.8-10.8)
[2022-07-26 07:38] LABS: ALANINE AMINOTRANSFERASE 22 U/L (12-78); ALBUMIN 1.6 g/dL (3.4-4.8); ANION GAP 13 (5-15); ASPARTATE AMINOTRANSFERASE 22 U/L (10-37); CALCIUM 8.4 mg/dL (8.4-11.0); CREATININE 1.26 mg/dL (0.55-1.30); GLUCOSE 92 mg/dL (70-99); PHOSPHORUS 2.9 mg/dL (2.7-4.5); TOTAL BILIRUBIN 0.4 mg/dL (0.0-1.0); UREA NITROGEN, BLOOD 42 mg/dL (8-21)
[2022-07-26 07:42] LABS: CHLORIDE 126 mmol/L (98-107)
[2022-07-26] MEDS: PANTOPRAZOLE SODIUM 40 MG/VIAL (PROTONIX) IVP SCH ×2 (08:45→21:35)
[2022-07-26] MEDS: FOLIC ACID 1 MG TABLET PO SCH ×2 (08:46→21:37)
[2022-07-26] MEDS: CHOLECALCIFEROL (VITAMIN D3) 5,000 UNIT TABLET PO SCH (08:46)
[2022-07-26] MEDS: FERROUS SULFATE 325 MG TABLET.DR PO SCH (08:46)
[2022-07-26] MEDS: levETIRAcetam 500 MG in NS 100 ML IV SCH ×2 (10:18→21:35)
[2022-07-26] MEDS: KCL 20 mEq in D5W 1000 mL 1,000 ML IV SCH ×3 (11:55→21:29)
[2022-07-26] MEDS: ASCORBIC ACID 500 MG TABLET PO SCH (17:34)
[2022-07-26] MEDS ORDERED: MVI IV SCH ×7 (21:00)
[2022-07-26] MEDS ORDERED: TRACE ELEMENTS IV SCH ×7 (21:00)
[2022-07-26] MEDS ORDERED: K PHOS IV SCH ×7 (21:00)
[2022-07-26] MEDS ORDERED: TPN PERIPHERAL IV SCH ×7 (21:00)
[2022-07-26] MEDS ORDERED: KCL 20 mEq in D5NS 1000 mL 1,000 ML IV SCH (21:00)
[2022-07-26] MEDS ORDERED: [UNRECOGNIZED DRUG - OTHER] IV SCH ×7 (21:00)
[2022-07-26] MEDS: ENOXAPARIN SODIUM 40 MG/0.4 ML SYRINGE SUBCUT SCH (21:34)
[2022-07-27] VITALS (27 sets, daily range): BP systolic 109–132
[2022-07-27] MEDS: PIPERACILLIN/TAZO 3.375/DEX-IS 50 ML IV SCH ×2 (02:02→08:03)
[2022-07-27] MEDS: LevALBUTEROL HCL 1.25 MG/0.5 ML *CONC.* VIAL.NEB (XOPENEX CONC.) INH SCH ×4 (04:25→19:17)
[2022-07-27 05:37] LABS: ALANINE AMINOTRANSFERASE 16 U/L (12-78); ALBUMIN 1.4 g/dL (3.4-4.8); ANION GAP 7 (5-15); ASPARTATE AMINOTRANSFERASE 18 U/L (10-37); CREATININE 1.09 mg/dL (0.55-1.30); GLUCOSE 140 mg/dL (70-99); PHOSPHORUS 3.4 mg/dL (2.7-4.5); TOTAL BILIRUBIN 0.4 mg/dL (0.0-1.0); TRIGLYCERIDES 109 mg/dL (30-150); UREA NITROGEN, BLOOD 41 mg/dL (8-21)
[2022-07-27 05:41] LABS: CHLORIDE 120 mmol/L (98-107)
[2022-07-27] MEDS: levETIRAcetam 500 MG in NS 100 ML IV SCH ×2 (08:27→20:56)
[2022-07-27] MEDS: PROPOFOL DRIP 100 ML IV PRN ×2 (08:31→23:30)
[2022-07-27] MEDS: PANTOPRAZOLE SODIUM 40 MG/VIAL (PROTONIX) IVP SCH ×2 (08:41→20:56)
[2022-07-27] MEDS: CHOLECALCIFEROL (VITAMIN D3) 5,000 UNIT TABLET PO SCH (08:42)
[2022-07-27] MEDS: FERROUS SULFATE 325 MG TABLET.DR PO SCH (08:42)
[2022-07-27] MEDS: FOLIC ACID 1 MG TABLET PO SCH ×2 (08:42→20:57)
[2022-07-27] MEDS: KCL 20 mEq in D5W 1000 mL 1,000 ML IV SCH ×2 (13:47→23:24)
[2022-07-27] MEDS: ASCORBIC ACID 500 MG TABLET PO SCH (18:01)
[2022-07-27 20:18] LABS: HEMATOCRIT 27.4 % (36-54); HEMOGLOBIN 8.6 g/dL (14.0-18.0); MEAN CORPUSCULAR HEMOGLOBIN 28 pg (27-31); MEAN CORPUSCULAR HGB CONC 31 % (32-36); RED BLOOD CELL COUNT(AUTO) 3.02 MIL/uL (4.2-6.2); WHITE BLOOD COUNT (AUTO) 11.3 K/uL (4.8-10.8)
[2022-07-27 20:27] LABS: MEAN CORPUSCULAR VOLUME 91 fL (79.0-98.0)
[2022-07-27 20:28] LABS: PLATELET COUNT (AUTO) 93 K/uL (130-430)
[2022-07-27 20:30] LABS: INR 1.1 (0.80-1.20); PROTHROMBIN TIME 11.3 SECS (9.5-12.5)
[2022-07-27 20:38] LABS: BAND % (MANUAL) 2 % (0-6); BASOPHILS % (MANUAL) 0 % (0-2); EOSINOPHILS % (MANUAL) 3 % (0-7); LYMPHOCYTES % (MANUAL) 4 % (20-46); MONOCYTES % (MANUAL) 1 % (0-11)
[2022-07-27] MEDS: CEFEPIME 2 GM in D5W 100 ML IV SCH (20:57)
[2022-07-27] MEDS: ENOXAPARIN SODIUM 40 MG/0.4 ML SYRINGE SUBCUT SCH (20:57)
[2022-07-27] MEDS ORDERED: K PHOS IV SCH ×8 (21:00)
[2022-07-27] MEDS ORDERED: [UNRECOGNIZED DRUG - OTHER] IV SCH ×8 (21:00)
[2022-07-27] MEDS ORDERED: TPN PERIPHERAL IV SCH ×8 (21:00)
[2022-07-27] MEDS ORDERED: POTASSIUM ACETATE IV SCH ×8 (21:00)
[2022-07-28] VITALS (35 sets, daily range): BP systolic 103–134
[2022-07-28] MEDS: LevALBUTEROL HCL 1.25 MG/0.5 ML *CONC.* VIAL.NEB (XOPENEX CONC.) INH SCH ×4 (00:40→19:00)
[2022-07-28 06:04] LABS: ALANINE AMINOTRANSFERASE 12 U/L (12-78); ALBUMIN 1.3 g/dL (3.4-4.8); ANION GAP 7 (5-15); ASPARTATE AMINOTRANSFERASE 18 U/L (10-37); CALCIUM 7.6 mg/dL (8.4-11.0); CHLORIDE 111 mmol/L (98-107); CREATININE 0.84 mg/dL (0.55-1.30); GLUCOSE 112 mg/dL (70-99); PHOSPHORUS 2.6 mg/dL (2.7-4.5); TOTAL BILIRUBIN 0.3 mg/dL (0.0-1.0); UREA NITROGEN, BLOOD 39 mg/dL (8-21)
[2022-07-28 07:18] LABS: BASOPHILS % (AUTO) 0.1 % (0.0-2.0); EOSINOPHILS # (AUTO) 0.2 K/uL (0.0-0.4); EOSINOPHILS % (AUTO) 1.7 % (0.0-4.0); HEMOGLOBIN 8.6 g/dL (14.0-18.0); LYMPHOCYTES # (AUTO) 0.3 K/uL (1.0-5.5); LYMPHOCYTES % (AUTO) 3.4 % (20.5-51.5); MEAN CORPUSCULAR HEMOGLOBIN 28 pg (27-31); MEAN CORPUSCULAR HGB CONC 32 % (32-36); MEAN CORPUSCULAR VOLUME 89 fL (79.0-98.0); MONOCYTES # (AUTO) 0.2 K/uL (0.0-1.0); MONOCYTES % (AUTO) 2.6 % (1.7-9.3); NEUTROPHILS # (AUTO) 8.9 K/uL (1.8-7.7); PLATELET COUNT (AUTO) 82 K/uL (130-430); RED BLOOD CELL COUNT(AUTO) 3.04 MIL/uL (4.2-6.2); RED CELL DISTRIBUTION WIDTH 17.5 % (9.0-15.0); WHITE BLOOD COUNT (AUTO) 9.7 K/uL (4.8-10.8)
[2022-07-28] MEDS: PANTOPRAZOLE SODIUM 40 MG/VIAL (PROTONIX) IVP SCH ×2 (08:35→20:38)
[2022-07-28] MEDS: FERROUS SULFATE 325 MG TABLET.DR PO SCH (08:35)
[2022-07-28] MEDS: FOLIC ACID 1 MG TABLET PO SCH ×2 (08:35→20:38)
[2022-07-28] MEDS: CEFEPIME 2 GM in D5W 100 ML IV SCH ×2 (08:37→20:38)
[2022-07-28] MEDS: KCL 20 mEq in D5W 1000 mL 1,000 ML IV SCH (08:49)
[2022-07-28] MEDS: levETIRAcetam 500 MG in NS 100 ML IV SCH ×2 (08:49→20:38)
[2022-07-28] MEDS: CHOLECALCIFEROL (VITAMIN D3) 5,000 UNIT TABLET PO SCH (08:50)
[2022-07-28 09:08] LABS: NEUTROPHILS % (AUTO) 92.2 % (40.0-70.0)
[2022-07-28] MEDS ORDERED: TPN PERIPHERAL IV SCH ×18 (11:00→21:00)
[2022-07-28] MEDS ORDERED: SODIUM ACETATE IV SCH ×18 (11:00→21:00)
[2022-07-28] MEDS ORDERED: POTASSIUM ACETATE IV SCH ×18 (11:00→21:00)
[2022-07-28] MEDS ORDERED: [UNRECOGNIZED DRUG - OTHER] IV SCH ×18 (11:00→21:00)
[2022-07-28] MEDS: PROPOFOL DRIP 100 ML IV PRN (14:31)
[2022-07-28] MEDS: ASCORBIC ACID 500 MG TABLET PO SCH (17:16)
[2022-07-28] MEDS: ENOXAPARIN SODIUM 40 MG/0.4 ML SYRINGE SUBCUT SCH (20:38)
[2022-07-29] VITALS (32 sets, daily range): BP systolic 91–140
[2022-07-29] MEDS: LevALBUTEROL HCL 1.25 MG/0.5 ML *CONC.* VIAL.NEB (XOPENEX CONC.) INH SCH ×4 (01:00→19:00)
[2022-07-29 06:42] LABS: ALANINE AMINOTRANSFERASE 16 U/L (12-78); ALBUMIN 1.2 g/dL (3.4-4.8); ANION GAP 7 (5-15); ASPARTATE AMINOTRANSFERASE 24 U/L (10-37); CHLORIDE 108 mmol/L (98-107); CREATININE 0.76 mg/dL (0.55-1.30); GLUCOSE 118 mg/dL (70-99); PHOSPHORUS 2.7 mg/dL (2.7-4.5); TOTAL BILIRUBIN 0.4 mg/dL (0.0-1.0); UREA NITROGEN, BLOOD 38 mg/dL (8-21)
[2022-07-29] MEDS: levETIRAcetam 500 MG in NS 100 ML IV SCH ×2 (08:40→20:23)
[2022-07-29] MEDS: PANTOPRAZOLE SODIUM 40 MG/VIAL (PROTONIX) IVP SCH ×2 (08:41→20:23)
[2022-07-29] MEDS: FOLIC ACID 1 MG TABLET PO SCH ×2 (08:41→20:23)
[2022-07-29] MEDS: CEFEPIME 2 GM in D5W 100 ML IV SCH ×2 (08:41→21:56)
[2022-07-29] MEDS: FERROUS SULFATE 325 MG TABLET.DR PO SCH (08:41)
[2022-07-29] MEDS: CHOLECALCIFEROL (VITAMIN D3) 5,000 UNIT TABLET PO SCH (08:41)
[2022-07-29] MEDS ORDERED: MINERAL OIL 30 ML UDC GT ONE (10:30)
[2022-07-29] MEDS: KCL 20 mEq in D5W 1000 mL 1,000 ML IV SCH ×2 (11:21→23:50)
[2022-07-29] MEDS ORDERED: methylPREDNISolone SOD SUCC/PF 62.5 MG/ML VIAL IVP ONE (14:30)
[2022-07-29] MEDS: ASCORBIC ACID 500 MG TABLET PO SCH (17:18)
[2022-07-29] MEDS: PROPOFOL DRIP 100 ML IV PRN (18:50)
[2022-07-29] MEDS: ENOXAPARIN SODIUM 40 MG/0.4 ML SYRINGE SUBCUT SCH (20:23)
[2022-07-29] MEDS ORDERED: TPN PERIPHERAL IV SCH ×9 (21:00)
[2022-07-29] MEDS ORDERED: SODIUM ACETATE IV SCH ×9 (21:00)
[2022-07-29] MEDS ORDERED: [UNRECOGNIZED DRUG - OTHER] IV SCH ×9 (21:00)
[2022-07-29] MEDS ORDERED: POTASSIUM ACETATE IV SCH ×9 (21:00)
[2022-07-29] MEDS: methylPREDNISolone SOD SUCC/PF 62.5 MG/ML VIAL IVP SCH (21:56)
[2022-07-29] MEDS ORDERED: ACETAMINOPHEN 325 MG TABLET PO PRN (22:05)
[2022-07-30] VITALS (36 sets, daily range): BP systolic 110–128
[2022-07-30] MEDS: LevALBUTEROL HCL 1.25 MG/0.5 ML *CONC.* VIAL.NEB (XOPENEX CONC.) INH SCH ×4 (01:00→19:00)
[2022-07-30] MEDS: PROPOFOL DRIP 100 ML IV PRN ×2 (04:49→18:42)
[2022-07-30] MEDS: methylPREDNISolone SOD SUCC/PF 62.5 MG/ML VIAL IVP SCH ×3 (06:05→21:18)
[2022-07-30 06:19] LABS: ALANINE AMINOTRANSFERASE 27 U/L (12-78); ALBUMIN 1.3 g/dL (3.4-4.8); ANION GAP 8 (5-15); ASPARTATE AMINOTRANSFERASE 32 U/L (10-37); CALCIUM 7.9 mg/dL (8.4-11.0); CHLORIDE 106 mmol/L (98-107); GLUCOSE 227 mg/dL (70-99); PHOSPHORUS 3.3 mg/dL (2.7-4.5); TOTAL BILIRUBIN 0.3 mg/dL (0.0-1.0); UREA NITROGEN, BLOOD 47 mg/dL (8-21)
[2022-07-30] MEDS: INSULIN REGULAR, HUMAN 100 UNITS/ML, 3 ML VIAL (humuLIN R) SUBCUT PRN ×2 (06:21→21:41)
[2022-07-30] MEDS: MINERAL OIL 30 ML UDC GT SCH (08:10)
[2022-07-30] MEDS: PANTOPRAZOLE SODIUM 40 MG/VIAL (PROTONIX) IVP SCH ×2 (08:10→21:17)
[2022-07-30] MEDS: FERROUS SULFATE 325 MG TABLET.DR PO SCH (08:13)
[2022-07-30] MEDS: CHOLECALCIFEROL (VITAMIN D3) 5,000 UNIT TABLET PO SCH (08:14)
[2022-07-30] MEDS: FOLIC ACID 1 MG TABLET PO SCH ×2 (08:14→21:18)
[2022-07-30] MEDS: levETIRAcetam 500 MG in NS 100 ML IV SCH ×2 (08:16→21:16)
[2022-07-30] MEDS: CEFEPIME 2 GM in D5W 100 ML IV SCH ×2 (08:17→21:17)
[2022-07-30] MEDS: FLUCONAZOLE 200 mg/ NS 100 ML IV SCH (14:12)
[2022-07-30] MEDS: ASCORBIC ACID 500 MG TABLET PO SCH (17:36)
[2022-07-30] MEDS: ENOXAPARIN SODIUM 40 MG/0.4 ML SYRINGE SUBCUT SCH (21:18)
[2022-07-31] VITALS (36 sets, daily range): BP systolic 89–142
[2022-07-31] MEDS: LevALBUTEROL HCL 1.25 MG/0.5 ML *CONC.* VIAL.NEB (XOPENEX CONC.) INH SCH (01:00)
[2022-07-31 05:31] LABS: BASOPHILS % (AUTO) 0.2 % (0.0-2.0); HEMATOCRIT 25.4 % (36-54); HEMOGLOBIN 8.3 g/dL (14.0-18.0); LYMPHOCYTES # (AUTO) 0.2 K/uL (1.0-5.5); MEAN CORPUSCULAR HEMOGLOBIN 29 pg (27-31); MEAN CORPUSCULAR HGB CONC 33 % (32-36); MEAN CORPUSCULAR VOLUME 88 fL (79.0-98.0); MONOCYTES # (AUTO) 0.2 K/uL (0.0-1.0); MONOCYTES % (AUTO) 3.1 % (1.7-9.3); NEUTROPHILS # (AUTO) 6.8 K/uL (1.8-7.7); PLATELET COUNT (AUTO) 294 K/uL (130-430); RED BLOOD CELL COUNT(AUTO) 2.88 MIL/uL (4.2-6.2); RED CELL DISTRIBUTION WIDTH 17.8 % (9.0-15.0); WHITE BLOOD COUNT (AUTO) 7.2 K/uL (4.8-10.8)
[2022-07-31] MEDS: methylPREDNISolone SOD SUCC/PF 62.5 MG/ML VIAL IVP SCH ×3 (06:00→22:03)
[2022-07-31 06:06] LABS: ANION GAP 6 (5-15); CALCIUM 7.7 mg/dL (8.4-11.0); CHLORIDE 109 mmol/L (98-107); CREATININE 0.92 mg/dL (0.55-1.30); GLUCOSE 167 mg/dL (70-99); UREA NITROGEN, BLOOD 56 mg/dL (8-21)
[2022-07-31] MEDS: INSULIN REGULAR, HUMAN 100 UNITS/ML, 3 ML VIAL (humuLIN R) SUBCUT PRN ×2 (06:15→11:53)
[2022-07-31 08:32] LABS: NEUTROPHILS % (AUTO) 93.7 % (40.0-70.0)
[2022-07-31] MEDS: PANTOPRAZOLE SODIUM 40 MG/VIAL (PROTONIX) IVP SCH ×2 (09:25→22:02)
[2022-07-31] MEDS: FERROUS SULFATE 325 MG TABLET.DR PO SCH (09:26)
[2022-07-31] MEDS: FOLIC ACID 1 MG TABLET PO SCH ×2 (09:26→22:02)
[2022-07-31] MEDS: MINERAL OIL 30 ML UDC GT SCH (09:26)
[2022-07-31] MEDS: CEFEPIME 2 GM in D5W 100 ML IV SCH ×2 (09:26→22:02)
[2022-07-31] MEDS: CHOLECALCIFEROL (VITAMIN D3) 5,000 UNIT TABLET PO SCH (09:27)
[2022-07-31] MEDS: PROPOFOL DRIP 100 ML IV PRN (09:30)
[2022-07-31] MEDS: levETIRAcetam 500 MG in NS 100 ML IV SCH ×2 (10:48→22:01)
[2022-07-31] MEDS: FLUCONAZOLE 200 mg/ NS 100 ML IV SCH (15:24)
[2022-07-31] MEDS: ASCORBIC ACID 500 MG TABLET PO SCH (17:25)
[2022-07-31] MEDS: IPRATROPIUM/ALBUTEROL SULFATE 3 ML AMPUL.NEB (DUONEB) INH SCH (19:34)
[2022-07-31] MEDS: ENOXAPARIN SODIUM 40 MG/0.4 ML SYRINGE SUBCUT SCH (22:02)
[2022-08-01] VITALS (28 sets, daily range): BP systolic 114–150
[2022-08-01] MEDS: IPRATROPIUM/ALBUTEROL SULFATE 3 ML AMPUL.NEB (DUONEB) INH SCH ×3 (01:00→19:40)
[2022-08-01] MEDS: PROPOFOL DRIP 100 ML IV PRN (01:40)
[2022-08-01] MEDS: methylPREDNISolone SOD SUCC/PF 62.5 MG/ML VIAL IVP SCH ×3 (06:33→21:04)
[2022-08-01] MEDS: INSULIN REGULAR, HUMAN 100 UNITS/ML, 3 ML VIAL (humuLIN R) SUBCUT PRN ×2 (06:34→08:32)
[2022-08-01] MEDS: CEFEPIME 2 GM in D5W 100 ML IV SCH ×2 (08:45→21:03)
[2022-08-01] MEDS: MINERAL OIL 30 ML UDC GT SCH (08:46)
[2022-08-01] MEDS: CHOLECALCIFEROL (VITAMIN D3) 5,000 UNIT TABLET PO SCH (08:46)
[2022-08-01] MEDS: FOLIC ACID 1 MG TABLET PO SCH ×2 (08:46→21:03)
[2022-08-01] MEDS: PANTOPRAZOLE SODIUM 40 MG/VIAL (PROTONIX) IVP SCH ×2 (08:46→21:03)
[2022-08-01] MEDS: FERROUS SULFATE 325 MG TABLET.DR PO SCH (08:47)
[2022-08-01] MEDS: levETIRAcetam 500 MG in NS 100 ML IV SCH ×2 (08:47→21:02)
[2022-08-01] MEDS: NACL 0.9% 1,000 ML IV SCH (11:08)
[2022-08-01] MEDS: FLUCONAZOLE 200 mg/ NS 100 ML IV SCH (13:56)
[2022-08-01] MEDS: ASCORBIC ACID 500 MG TABLET PO SCH (18:53)
[2022-08-01] MEDS: ENOXAPARIN SODIUM 40 MG/0.4 ML SYRINGE SUBCUT SCH (21:04)
[2022-08-02] VITALS (32 sets, daily range): BP systolic 123–149
[2022-08-02] MEDS: IPRATROPIUM/ALBUTEROL SULFATE 3 ML AMPUL.NEB (DUONEB) INH SCH ×4 (00:20→19:20)
[2022-08-02 05:13] LABS: HEMOGLOBIN 9.1 g/dL (14.0-18.0); LYMPHOCYTES # (AUTO) 0.2 K/uL (1.0-5.5); LYMPHOCYTES % (AUTO) 1.4 % (20.5-51.5); MEAN CORPUSCULAR HEMOGLOBIN 29 pg (27-31); MEAN CORPUSCULAR HGB CONC 32 % (32-36); MEAN CORPUSCULAR VOLUME 89 fL (79.0-98.0); MONOCYTES # (AUTO) 0.6 K/uL (0.0-1.0); MONOCYTES % (AUTO) 4.4 % (1.7-9.3); NEUTROPHILS # (AUTO) 12.5 K/uL (1.8-7.7); NEUTROPHILS % (AUTO) 94.2 % (40.0-70.0); PLATELET COUNT (AUTO) 497 K/uL (130-430); RED BLOOD CELL COUNT(AUTO) 3.15 MIL/uL (4.2-6.2); RED CELL DISTRIBUTION WIDTH 17.7 % (9.0-15.0); WHITE BLOOD COUNT (AUTO) 13.3 K/uL (4.8-10.8)
[2022-08-02 05:22] LABS: ANION GAP 8 (5-15); CALCIUM 7.8 mg/dL (8.4-11.0); CHLORIDE 110 mmol/L (98-107); CREATININE 0.95 mg/dL (0.55-1.30); GLUCOSE 210 mg/dL (70-99); UREA NITROGEN, BLOOD 72 mg/dL (8-21)
[2022-08-02] MEDS: NACL 0.9% 1,000 ML IV SCH ×2 (06:15→10:33)
[2022-08-02] MEDS: methylPREDNISolone SOD SUCC/PF 62.5 MG/ML VIAL IVP SCH ×2 (06:16→13:55)
[2022-08-02] MEDS: MINERAL OIL 30 ML UDC GT SCH (08:07)
[2022-08-02] MEDS: PANTOPRAZOLE SODIUM 40 MG/VIAL (PROTONIX) IVP SCH (08:08)
[2022-08-02] MEDS: levETIRAcetam 500 MG in NS 100 ML IV SCH (08:08)
[2022-08-02] MEDS: CEFEPIME 2 GM in D5W 100 ML IV SCH (08:08)
[2022-08-02] MEDS: FERROUS SULFATE 325 MG TABLET.DR PO SCH (08:09)
[2022-08-02] MEDS: CHOLECALCIFEROL (VITAMIN D3) 5,000 UNIT TABLET PO SCH (08:09)
[2022-08-02] MEDS: FOLIC ACID 1 MG TABLET PO SCH (08:09)
[2022-08-02] MEDS: INSULIN REGULAR, HUMAN 100 UNITS/ML, 3 ML VIAL (humuLIN R) SUBCUT PRN ×2 (12:05→17:57)
[2022-08-02] MEDS: FLUCONAZOLE 200 mg/ NS 100 ML IV SCH (13:55)
[2022-08-02] MEDS: ASCORBIC ACID 500 MG TABLET PO SCH (17:19)
[2022-08-03] VITALS (33 sets, daily range): BP systolic 99–148
[2022-08-03] MEDS: CEFEPIME 2 GM in D5W 100 ML IV SCH (00:10)
[2022-08-03] MEDS: levETIRAcetam 500 MG in NS 100 ML IV SCH ×3 (00:10→21:37)
[2022-08-03] MEDS: FOLIC ACID 1 MG TABLET PO SCH ×3 (00:11→21:37)
[2022-08-03] MEDS: ENOXAPARIN SODIUM 40 MG/0.4 ML SYRINGE SUBCUT SCH ×2 (00:11→21:38)
[2022-08-03] MEDS: PANTOPRAZOLE SODIUM 40 MG/VIAL (PROTONIX) IVP SCH ×3 (00:11→21:37)
[2022-08-03] MEDS: methylPREDNISolone SOD SUCC/PF 62.5 MG/ML VIAL IVP SCH ×4 (00:15→21:38)
[2022-08-03] MEDS: IPRATROPIUM/ALBUTEROL SULFATE 3 ML AMPUL.NEB (DUONEB) INH SCH ×4 (01:30→19:00)
[2022-08-03] MEDS ORDERED: LORazepam 2 MG/ML VIAL ONE (01:50)
[2022-08-03 05:16] LABS: BASOPHILS % (AUTO) 0.1 % (0.0-2.0); HEMATOCRIT 26.8 % (36-54); HEMOGLOBIN 8.6 g/dL (14.0-18.0); LYMPHOCYTES # (AUTO) 0.2 K/uL (1.0-5.5); LYMPHOCYTES % (AUTO) 1.7 % (20.5-51.5); MEAN CORPUSCULAR HEMOGLOBIN 29 pg (27-31); MEAN CORPUSCULAR HGB CONC 32 % (32-36); MEAN CORPUSCULAR VOLUME 89 fL (79.0-98.0); MONOCYTES # (AUTO) 0.2 K/uL (0.0-1.0); MONOCYTES % (AUTO) 2.2 % (1.7-9.3); NEUTROPHILS # (AUTO) 9.9 K/uL (1.8-7.7); PLATELET COUNT (AUTO) 453 K/uL (130-430); RED CELL DISTRIBUTION WIDTH 18.1 % (9.0-15.0); WHITE BLOOD COUNT (AUTO) 10.3 K/uL (4.8-10.8)
[2022-08-03 05:59] LABS: ALANINE AMINOTRANSFERASE 27 U/L (12-78); ALBUMIN 1.5 g/dL (3.4-4.8); ANION GAP 6 (5-15); ASPARTATE AMINOTRANSFERASE 18 U/L (10-37); CALCIUM 7.8 mg/dL (8.4-11.0); CHLORIDE 112 mmol/L (98-107); CREATININE 0.92 mg/dL (0.55-1.30); FREE T4 (FREE THYROXINE) 0.7 ng/dL (0.6-1.6); GLUCOSE 182 mg/dL (70-99); THYROID STIMULATING HORMONE 1.64 uIu/mL (0.34-4.82); TOTAL BILIRUBIN 0.2 mg/dL (0.0-1.0); UREA NITROGEN, BLOOD 79 mg/dL (8-21)
[2022-08-03] MEDS: INSULIN REGULAR, HUMAN 100 UNITS/ML, 3 ML VIAL (humuLIN R) SUBCUT PRN ×2 (06:40→22:02)
[2022-08-03] MEDS: MINERAL OIL 30 ML UDC GT SCH (09:48)
[2022-08-03] MEDS: FERROUS SULFATE 325 MG TABLET.DR PO SCH (09:49)
[2022-08-03] MEDS: CHOLECALCIFEROL (VITAMIN D3) 5,000 UNIT TABLET PO SCH (09:50)
[2022-08-03] MEDS: FLUCONAZOLE 200 mg/ NS 100 ML IV SCH (15:03)
[2022-08-03] MEDS: ASCORBIC ACID 500 MG TABLET PO SCH (18:29)
[2022-08-03] MEDS: NACL 0.9% 1,000 ML IV SCH (22:01)
[2022-08-04] VITALS (33 sets, daily range): BP systolic 131–154
[2022-08-04] MEDS: IPRATROPIUM/ALBUTEROL SULFATE 3 ML AMPUL.NEB (DUONEB) INH SCH ×4 (01:00→19:35)
[2022-08-04] MEDS: methylPREDNISolone SOD SUCC/PF 62.5 MG/ML VIAL IVP SCH ×3 (06:32→21:02)
[2022-08-04] MEDS: INSULIN REGULAR, HUMAN 100 UNITS/ML, 3 ML VIAL (humuLIN R) SUBCUT PRN ×2 (06:47→21:21)
[2022-08-04] MEDS ORDERED: LevALBUTEROL HCL 1.25 MG/0.5 ML *CONC.* VIAL.NEB (XOPENEX CONC.) INH ONE (07:06)
[2022-08-04] MEDS: MINERAL OIL 30 ML UDC GT SCH (09:43)
[2022-08-04] MEDS: PANTOPRAZOLE SODIUM 40 MG/VIAL (PROTONIX) IVP SCH ×2 (09:46→21:01)
[2022-08-04] MEDS: levETIRAcetam 500 MG in NS 100 ML IV SCH ×2 (09:46→21:01)
[2022-08-04] MEDS: FERROUS SULFATE 325 MG TABLET.DR PO SCH (09:47)
[2022-08-04] MEDS: FOLIC ACID 1 MG TABLET PO SCH ×2 (09:47→21:01)
[2022-08-04] MEDS: CHOLECALCIFEROL (VITAMIN D3) 5,000 UNIT TABLET PO SCH (09:47)
[2022-08-04] MEDS: FLUCONAZOLE 200 mg/ NS 100 ML IV SCH (14:44)
[2022-08-04] MEDS: ASCORBIC ACID 500 MG TABLET PO SCH (18:15)
[2022-08-04] MEDS: NACL 0.9% 1,000 ML IV SCH (18:16)
[2022-08-04] MEDS: ENOXAPARIN SODIUM 40 MG/0.4 ML SYRINGE SUBCUT SCH (21:02)
[2022-08-05] VITALS (32 sets, daily range): BP systolic 126–152
[2022-08-05] MEDS: IPRATROPIUM/ALBUTEROL SULFATE 3 ML AMPUL.NEB (DUONEB) INH SCH ×4 (02:04→19:45)
[2022-08-05] MEDS: methylPREDNISolone SOD SUCC/PF 62.5 MG/ML VIAL IVP SCH ×2 (06:37→13:13)
[2022-08-05] MEDS: INSULIN REGULAR, HUMAN 100 UNITS/ML, 3 ML VIAL (humuLIN R) SUBCUT PRN ×2 (06:45→18:22)
[2022-08-05 06:48] LABS: HEMATOCRIT 26.4 % (36-54); HEMOGLOBIN 8.3 g/dL (14.0-18.0); LYMPHOCYTES # (AUTO) 0.3 K/uL (1.0-5.5); LYMPHOCYTES % (AUTO) 3.1 % (20.5-51.5); MEAN CORPUSCULAR HEMOGLOBIN 28 pg (27-31); MEAN CORPUSCULAR HGB CONC 32 % (32-36); MEAN CORPUSCULAR VOLUME 90 fL (79.0-98.0); MONOCYTES # (AUTO) 0.5 K/uL (0.0-1.0); MONOCYTES % (AUTO) 5.6 % (1.7-9.3); NEUTROPHILS # (AUTO) 7.5 K/uL (1.8-7.7); NEUTROPHILS % (AUTO) 91.3 % (40.0-70.0); PLATELET COUNT (AUTO) 472 K/uL (130-430); RED BLOOD CELL COUNT(AUTO) 2.93 MIL/uL (4.2-6.2); RED CELL DISTRIBUTION WIDTH 18.7 % (9.0-15.0); WHITE BLOOD COUNT (AUTO) 8.2 K/uL (4.8-10.8)
[2022-08-05 07:05] LABS: ANION GAP 7 (5-15); CALCIUM 7.4 mg/dL (8.4-11.0); CHLORIDE 116 mmol/L (98-107); CREATININE 0.75 mg/dL (0.55-1.30); GLUCOSE 175 mg/dL (70-99); UREA NITROGEN, BLOOD 66 mg/dL (8-21)
[2022-08-05] MEDS ORDERED: CALCIUM CARBONATE 500 MG/ TAB.CHEW PO PRN (08:53)
[2022-08-05] MEDS: MINERAL OIL 30 ML UDC GT SCH (09:16)
[2022-08-05] MEDS: CHOLECALCIFEROL (VITAMIN D3) 5,000 UNIT TABLET PO SCH (09:16)
[2022-08-05] MEDS: FOLIC ACID 1 MG TABLET PO SCH ×2 (09:16→21:02)
[2022-08-05] MEDS: FERROUS SULFATE 325 MG TABLET.DR PO SCH (09:16)
[2022-08-05] MEDS: levETIRAcetam 500 MG in NS 100 ML IV SCH ×2 (09:16→21:00)
[2022-08-05] MEDS: PANTOPRAZOLE SODIUM 40 MG/VIAL (PROTONIX) IVP SCH ×2 (09:16→21:01)
[2022-08-05] MEDS: FLUCONAZOLE 200 mg/ NS 100 ML IV SCH (13:13)
[2022-08-05] MEDS: NACL 0.9% 1,000 ML IV SCH (16:10)
[2022-08-05] MEDS: ASCORBIC ACID 500 MG TABLET PO SCH (17:43)
[2022-08-05] MEDS: ENOXAPARIN SODIUM 40 MG/0.4 ML SYRINGE SUBCUT SCH (21:03)
[2022-08-06] VITALS (36 sets, daily range): BP systolic 112–144
[2022-08-06] MEDS: IPRATROPIUM/ALBUTEROL SULFATE 3 ML AMPUL.NEB (DUONEB) INH SCH ×4 (01:00→19:43)
[2022-08-06] MEDS: methylPREDNISolone SOD SUCC/PF 62.5 MG/ML VIAL IVP SCH ×3 (02:05→13:50)
[2022-08-06 06:11] LABS: BASOPHILS % (AUTO) 0.1 % (0.0-2.0); HEMATOCRIT 29.3 % (36-54); HEMOGLOBIN 9.4 g/dL (14.0-18.0); LYMPHOCYTES # (AUTO) 0.2 K/uL (1.0-5.5); LYMPHOCYTES % (AUTO) 1.8 % (20.5-51.5); MEAN CORPUSCULAR HEMOGLOBIN 29 pg (27-31); MEAN CORPUSCULAR HGB CONC 32 % (32-36); MEAN CORPUSCULAR VOLUME 90 fL (79.0-98.0); MONOCYTES # (AUTO) 0.3 K/uL (0.0-1.0); MONOCYTES % (AUTO) 2.9 % (1.7-9.3); NEUTROPHILS % (AUTO) 95.2 % (40.0-70.0); PLATELET COUNT (AUTO) 554 K/uL (130-430); RED BLOOD CELL COUNT(AUTO) 3.27 MIL/uL (4.2-6.2); RED CELL DISTRIBUTION WIDTH 18.6 % (9.0-15.0); WHITE BLOOD COUNT (AUTO) 10.5 K/uL (4.8-10.8)
[2022-08-06 06:33] LABS: ANION GAP 8 (5-15); CALCIUM 7.4 mg/dL (8.4-11.0); CHLORIDE 115 mmol/L (98-107); CREATININE 0.89 mg/dL (0.55-1.30); GLUCOSE 209 mg/dL (70-99); UREA NITROGEN, BLOOD 78 mg/dL (8-21)
[2022-08-06] MEDS: INSULIN REGULAR, HUMAN 100 UNITS/ML, 3 ML VIAL (humuLIN R) SUBCUT PRN ×3 (06:47→22:23)
[2022-08-06] MEDS: NACL 0.9% 1,000 ML IV SCH (13:38)
[2022-08-06] MEDS: MINERAL OIL 30 ML UDC GT SCH (13:40)
[2022-08-06] MEDS: levETIRAcetam 500 MG in NS 100 ML IV SCH ×2 (13:42→22:17)
[2022-08-06] MEDS: PANTOPRAZOLE SODIUM 40 MG/VIAL (PROTONIX) IVP SCH ×2 (13:43→22:18)
[2022-08-06] MEDS: FERROUS SULFATE 325 MG TABLET.DR PO SCH (13:43)
[2022-08-06] MEDS: FOLIC ACID 1 MG TABLET PO SCH ×2 (13:45→22:19)
[2022-08-06] MEDS: CHOLECALCIFEROL (VITAMIN D3) 5,000 UNIT TABLET PO SCH (13:46)
[2022-08-06] MEDS: ASCORBIC ACID 500 MG TABLET PO SCH (19:05)
[2022-08-06] MEDS: ENOXAPARIN SODIUM 40 MG/0.4 ML SYRINGE SUBCUT SCH (22:19)
[2022-08-07] VITALS (35 sets, daily range): BP systolic 112–137
[2022-08-07] MEDS: IPRATROPIUM/ALBUTEROL SULFATE 3 ML AMPUL.NEB (DUONEB) INH SCH ×4 (01:13→19:39)
[2022-08-07 05:37] LABS: BASOPHILS % (AUTO) 0.1 % (0.0-2.0); HEMATOCRIT 29.3 % (36-54); HEMOGLOBIN 9.3 g/dL (14.0-18.0); LYMPHOCYTES # (AUTO) 0.5 K/uL (1.0-5.5); LYMPHOCYTES % (AUTO) 3.2 % (20.5-51.5); MEAN CORPUSCULAR HEMOGLOBIN 28 pg (27-31); MEAN CORPUSCULAR HGB CONC 32 % (32-36); MEAN CORPUSCULAR VOLUME 90 fL (79.0-98.0); MONOCYTES % (AUTO) 5.9 % (1.7-9.3); NEUTROPHILS # (AUTO) 15.4 K/uL (1.8-7.7); NEUTROPHILS % (AUTO) 90.8 % (40.0-70.0); PLATELET COUNT (AUTO) 568 K/uL (130-430); RED BLOOD CELL COUNT(AUTO) 3.28 MIL/uL (4.2-6.2); RED CELL DISTRIBUTION WIDTH 19.5 % (9.0-15.0); WHITE BLOOD COUNT (AUTO) 16.9 K/uL (4.8-10.8)
[2022-08-07 06:05] LABS: ALANINE AMINOTRANSFERASE 21 U/L (12-78); ALBUMIN 1.4 g/dL (3.4-4.8); ANION GAP 8 (5-15); ASPARTATE AMINOTRANSFERASE 21 U/L (10-37); CALCIUM 7.4 mg/dL (8.4-11.0); CHLORIDE 116 mmol/L (98-107); CREATININE 0.84 mg/dL (0.55-1.30); GLUCOSE 170 mg/dL (70-99); TOTAL BILIRUBIN 0.1 mg/dL (0.0-1.0); UREA NITROGEN, BLOOD 78 mg/dL (8-21)
[2022-08-07] MEDS: FERROUS SULFATE 325 MG TABLET.DR PO SCH (08:16)
[2022-08-07] MEDS: MINERAL OIL 30 ML UDC GT SCH (08:16)
[2022-08-07] MEDS: NACL 0.9% 1,000 ML IV SCH (08:16)
[2022-08-07] MEDS: CHOLECALCIFEROL (VITAMIN D3) 5,000 UNIT TABLET PO SCH (08:16)
[2022-08-07] MEDS: PANTOPRAZOLE SODIUM 40 MG/VIAL (PROTONIX) IVP SCH ×2 (08:16→21:50)
[2022-08-07] MEDS: FOLIC ACID 1 MG TABLET PO SCH ×2 (08:16→21:51)
[2022-08-07] MEDS: levETIRAcetam 500 MG in NS 100 ML IV SCH ×2 (08:17→21:49)
[2022-08-07] MEDS: ASCORBIC ACID 500 MG TABLET PO SCH (17:55)
[2022-08-07] MEDS: ENOXAPARIN SODIUM 40 MG/0.4 ML SYRINGE SUBCUT SCH (21:51)
[2022-08-08] VITALS (33 sets, daily range): BP systolic 97–138
[2022-08-08] MEDS: IPRATROPIUM/ALBUTEROL SULFATE 3 ML AMPUL.NEB (DUONEB) INH SCH ×4 (01:57→19:44)
[2022-08-08] MEDS: NACL 0.9% 1,000 ML IV SCH (06:29)
[2022-08-08] MEDS: FOLIC ACID 1 MG TABLET PO SCH ×2 (09:24→20:49)
[2022-08-08] MEDS: FERROUS SULFATE 325 MG TABLET.DR PO SCH (09:24)
[2022-08-08] MEDS: PANTOPRAZOLE SODIUM 40 MG/VIAL (PROTONIX) IVP SCH ×2 (09:24→20:49)
[2022-08-08] MEDS: CHOLECALCIFEROL (VITAMIN D3) 5,000 UNIT TABLET PO SCH (09:24)
[2022-08-08] MEDS: MINERAL OIL 30 ML UDC GT SCH (09:25)
[2022-08-08] MEDS: levETIRAcetam 500 MG in NS 100 ML IV SCH ×2 (09:28→20:48)
[2022-08-08] MEDS: ASCORBIC ACID 500 MG TABLET PO SCH (17:46)
[2022-08-08] MEDS: ENOXAPARIN SODIUM 40 MG/0.4 ML SYRINGE SUBCUT SCH (20:50)
[2022-08-09] VITALS (31 sets, daily range): BP systolic 11–131
[2022-08-09] MEDS: NACL 0.9% 1,000 ML IV SCH (00:42)
[2022-08-09] MEDS: IPRATROPIUM/ALBUTEROL SULFATE 3 ML AMPUL.NEB (DUONEB) INH SCH ×4 (01:33→20:35)
[2022-08-09 05:51] LABS: BASOPHILS % (AUTO) 0.1 % (0.0-2.0); EOSINOPHILS # (AUTO) 0.1 K/uL (0.0-0.4); EOSINOPHILS % (AUTO) 0.6 % (0.0-4.0); HEMATOCRIT 25.1 % (36-54); HEMOGLOBIN 7.8 g/dL (14.0-18.0); LYMPHOCYTES # (AUTO) 0.5 K/uL (1.0-5.5); LYMPHOCYTES % (AUTO) 2.4 % (20.5-51.5); MEAN CORPUSCULAR HEMOGLOBIN 29 pg (27-31); MEAN CORPUSCULAR HGB CONC 31 % (32-36); MEAN CORPUSCULAR VOLUME 92 fL (79.0-98.0); MONOCYTES % (AUTO) 4.7 % (1.7-9.3); NEUTROPHILS # (AUTO) 18.9 K/uL (1.8-7.7); NEUTROPHILS % (AUTO) 92.2 % (40.0-70.0); PLATELET COUNT (AUTO) 404 K/uL (130-430); RED BLOOD CELL COUNT(AUTO) 2.74 MIL/uL (4.2-6.2); RED CELL DISTRIBUTION WIDTH 20.6 % (9.0-15.0); WHITE BLOOD COUNT (AUTO) 20.5 K/uL (4.8-10.8)
[2022-08-09 05:58] LABS: CALCIUM 7.2 mg/dL (8.4-11.0); CREATININE 0.65 mg/dL (0.55-1.30); GLUCOSE 146 mg/dL (70-99); UREA NITROGEN, BLOOD 53 mg/dL (8-21)
[2022-08-09 06:24] LABS: ANION GAP 7 (5-15)
[2022-08-09 06:59] LABS: CHLORIDE 121 mmol/L (98-107)
[2022-08-09] MEDS: FOLIC ACID 1 MG TABLET PO SCH ×2 (08:36→20:46)
[2022-08-09] MEDS: FERROUS SULFATE 325 MG TABLET.DR PO SCH (08:36)
[2022-08-09] MEDS: MINERAL OIL 30 ML UDC GT SCH (08:37)
[2022-08-09] MEDS: PANTOPRAZOLE SODIUM 40 MG/VIAL (PROTONIX) IVP SCH ×2 (08:37→20:45)
[2022-08-09] MEDS: CHOLECALCIFEROL (VITAMIN D3) 5,000 UNIT TABLET PO SCH (08:37)
[2022-08-09] MEDS: levETIRAcetam 500 MG in NS 100 ML IV SCH ×2 (08:39→20:45)
[2022-08-09] MEDS: ASCORBIC ACID 500 MG TABLET PO SCH (17:26)
[2022-08-09] MEDS: ENOXAPARIN SODIUM 40 MG/0.4 ML SYRINGE SUBCUT SCH (20:46)
[2022-08-09] MEDS: SULFAMETHOXAZOLE /TRIMETHOPRIM 10 ML in D5W 250 ML IV SCH (21:18)
[2022-08-10] VITALS (21 sets, daily range): BP systolic 99–110
[2022-08-10] MEDS: NACL 0.9% 1,000 ML IV SCH ×2 (01:45→14:04)
[2022-08-10] MEDS: IPRATROPIUM/ALBUTEROL SULFATE 3 ML AMPUL.NEB (DUONEB) INH SCH ×2 (04:31→08:01)
[2022-08-10] MEDS: SULFAMETHOXAZOLE /TRIMETHOPRIM 10 ML in D5W 250 ML IV SCH ×2 (05:36→13:55)
[2022-08-10] MEDS: PANTOPRAZOLE SODIUM 40 MG/VIAL (PROTONIX) IVP SCH (08:13)
[2022-08-10] MEDS: FOLIC ACID 1 MG TABLET PO SCH (08:13)
[2022-08-10] MEDS: CHOLECALCIFEROL (VITAMIN D3) 5,000 UNIT TABLET PO SCH (08:13)
[2022-08-10] MEDS: FERROUS SULFATE 325 MG TABLET.DR PO SCH (08:13)
[2022-08-10] MEDS: levETIRAcetam 500 MG in NS 100 ML IV SCH (08:22)
[2022-08-10] MEDS: MINERAL OIL 30 ML UDC GT SCH (08:29)
[2022-08-10] MEDS ORDERED: MORPHINE SULFATE IN 0.9 % NACL 100 ML IV PRN (12:45)
[2022-08-10] MEDS: MORPHINE SULFATE IN 0.9 % NACL 100 ML IV PRN (14:08)
[2022-08-11] VITALS: BP_SYST 105
[2022-08-11 08:00] VITALS: BP_SYST 123
[2022-08-11 12:00] VITALS: BP_SYST 128
[2022-08-11 16:00] VITALS: BP_SYST 124
[2022-08-11 19:40] VITALS: BP_SYST 130
[2022-08-12 01:17] VITALS: BP_SYST 123
[2022-08-12 09:03] VITALS: BP_SYST 113
[2022-08-12 11:49] VITALS: BP_SYST 111
[2022-08-12] MEDS: MORPHINE SULFATE IN 0.9 % NACL 100 ML IV PRN (13:02)
[2022-08-12 16:51] VITALS: BP_SYST 109
[2022-08-12 19:40] VITALS: BP_SYST 107
[2022-08-13 01:43] VITALS: BP_SYST 104
[2022-08-13] MEDS: MORPHINE SULFATE IN 0.9 % NACL 100 ML IV PRN (04:52)
[2022-08-13 09:11] VITALS: BP_SYST 89
[2022-08-13 11:58] VITALS: BP_SYST 96
== END 2022-08-13 15:10 | disposition hospice, inpatient (51) | DRG 870 ==
LOC: SED 13:43 → SMU 16:00 → SIC 07-23 10:22 → STU 08-10 19:37 → SMU 08-12 12:00
PROVIDERS: ADMIT Family Medicine; ATTEND Family Medicine
PROC: 30233N1 Transfusion of Nonautologous Red Blood Cells into Peripheral Vein, Percutaneous Approach (ICD-10-PCS; 2022-07-18)
PROC: 0DH63UZ Insertion of Feeding Device into Stomach, Percutaneous Approach (ICD-10-PCS; 2022-07-21)
PROC: 5A1955Z Respiratory Ventilation, Greater than 96 Consecutive Hours (ICD-10-PCS; 2022-07-23)
PROC: 0BH17EZ Insertion of Endotracheal Airway into Trachea, Via Natural or Artificial Opening (ICD-10-PCS; 2022-07-23)
PROC: 5A12012 Performance of Cardiac Output, Single, Manual (ICD-10-PCS; 2022-07-23)
PROC: 4A00X4Z Measurement of Central Nervous Electrical Activity, External Approach (ICD-10-PCS; principal; 2022-08-02)
DX: A41.9 Sepsis, unspecified organism (principal); E43 Unspecified severe protein-calorie malnutrition; J69.0 Pneumonitis due to inhalation of food and vomit; R65.21 Severe sepsis with septic shock; R57.1 Hypovolemic shock; I46.9 Cardiac arrest, cause unspecified; J96.00 Acute respiratory failure, unspecified whether with hypoxia or hypercapnia; L02.416 Cutaneous abscess of left lower limb; L03.116 Cellulitis of left lower limb; N17.9 Acute kidney failure, unspecified; E87.20 Acidosis, unspecified; K56.7 Ileus, unspecified; K56.609 Unspecified intestinal obstruction, unspecified as to partial versus complete obstruction; G93.40 Encephalopathy, unspecified; F03.A0 Unspecified dementia, mild, without behavioral disturbance, psychotic disturbance, mood disturbance, and anxiety; B19.20 Unspecified viral hepatitis C without hepatic coma; Z66 Do not resuscitate; R13.10 Dysphagia, unspecified; M70.42 Prepatellar bursitis, left knee; B95.62 Methicillin resistant Staphylococcus aureus infection as the cause of diseases classified elsewhere; K21.9 Gastro-esophageal reflux disease without esophagitis; K44.9 Diaphragmatic hernia without obstruction or gangrene; R53.81 Other malaise; D64.9 Anemia, unspecified; E11.9 Type 2 diabetes mellitus without complications; Z20.822 Contact with and (suspected) exposure to COVID-19; D69.6 Thrombocytopenia, unspecified; Z99.3 Dependence on wheelchair; Z87.891 Personal history of nicotine dependence; Z86.74 Personal history of sudden cardiac arrest; Z74.01 Bed confinement status; Z79.899 Other long term (current) drug therapy; Z79.4 Long term (current) use of insulin; Z51.5 Encounter for palliative care; Y93.89 Activity, other specified; Z68.20 Body mass index [BMI] 20.0-20.9, adult
CPT/HCPCS: 36415; 36600; 43246; 70450-TC; 71045; 73564; 73700-TC; 74018; 76376; 80048; 80053; 80202; 82140; 82550; 82607; 82728; 82746; 82803-TC; 82962; 83540; 83550; 83605; 83735; 83880; 84100; 84439; 84443; 84478; 84484; 85007; 85025; 85027; 85610-TC; 85730-TC; 86140; 86886; 86900; 86901; 86920; 87040; 87070-TC; 87075-TC; 87081; 87101; 87186-TC; 87205-TC; 92950; 93005; 93306; 94002; 94003; 94640; 94760; 95816; 96365; 96375; 99285; C9113; G0378; J0690; J0692; J0696; J1170; J1450; J1610; J1650; J1815; J1953; J2020; J2060; J2270; J2543; J2704; J2916; J2930; J3370; J3475; J3480; J3490; J7030; J7040; J7050; J7060; J7612; P9021; P9046; Q0163